=== PATIENT | female | born 1935 | race Caucasian/White ===

== ENCOUNTER 2020-12-14 19:40 | Inpatient (IN) | payer MEDICARE, OTHER ==
[~2020-12-14] VITALS: Ht 157.5 cm; Wt 61.2 kg
[2020-12-14 19:30] VITALS: BP 179/74
[2020-12-14] MEDS ORDERED: LORazepam 1 MG TABLET PO ONE (20:30)
[2020-12-14] MEDS ORDERED: ENOX40DI SQ (23:24)
[2020-12-14] MEDS ORDERED: PANT40TA6 PO (23:24)
[2020-12-14] MEDS ORDERED: FOLI0.8C PO (23:24)
[2020-12-14] MEDS ORDERED: THIA100T22 PO (23:24)
[2020-12-14] MEDS ORDERED: ACET325T21 PO (23:24)
[2020-12-15] MEDS: ACETAMINOPHEN 325 MG TABLET PO PRN ×2 (01:28→15:36)
[2020-12-15] MEDS: LORazepam 0.5 MG TABLET PO PRN ×4 (01:28→19:20)
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
[2020-12-15 05:24] VITALS: BP 181/79
[2020-12-15 06:26] LABS: BASO % 1 % (0-3); EOS # 0.2 x10^3/uL (0.0-0.7); EOS % 4 % (0-3); HEMATOCRIT 38.7 % (36.0-47.0); HEMOGLOBIN 12.8 g/dL (12.0-15.5); LYMPH % 19 % (24-48); MEAN CORPUSCULAR HEMOGLOBIN 30 pg (25-35); MEAN CORPUSCULAR HGB CONC 33 g/dL (31-37); MEAN CORPUSCULAR VOLUME 90 fL (79-100); MONO # 0.7 x10^3/uL (0.0-1.1); MONO % 13 % (0-9); NEUT # 3.4 x10^3uL (1.8-7.7); NEUT % 64 % (31-73); PLATELET COUNT 237 x10^3/uL (140-400); RED CELL DISTRIBUTION WIDTH 13.3 % (11.5-14.5); WHITE BLOOD COUNT 5.3 x10^3/uL (4.0-11.0)
[2020-12-15 06:39] LABS: ALBUMIN 2.7 g/dL (3.4-5.0); ALBUMIN/GLOBULIN RATIO 0.8 (1.0-1.7); CALCIUM 8.7 mg/dL (8.5-10.1); CREATININE 0.8 mg/dL (0.6-1.0); MAGNESIUM 1.7 mg/dL (1.8-2.4); POTASSIUM 3.6 mmol/L (3.5-5.1); TOTAL BILIRUBIN 0.6 mg/dL (0.2-1.0); TOTAL PROTEIN 6.1 g/dL (6.4-8.2)
[2020-12-15] MEDS: ENOXAPARIN 30 MG/0.3 ML SYRINGE. SQ SCH (08:08)
[2020-12-15] MEDS: PANTOPRAZOLE 40 MG TABLET. PO SCH (08:08)
[2020-12-15] MEDS: THIAMINE 100 MG TABLET. PO SCH (08:08)
[2020-12-15] MEDS: FOLIC ACID 1 MG TABLET PO SCH (08:08)
[2020-12-15 09:10] LABS: BACTERIA,URINE FEW /HPF (0-FEW); BILIRUBIN,URINE NEG (NEG); CLARITY,URINE CLEAR; COLOR,URINE YELLOW; GLUCOSE,URINE NEG (NEG); NITRITE,URINE NEG (NEG); SQUAMOUS EPITHELIAL CELL,UR FEW /LPF; UROBILINOGEN,URINE 0.2 mg/dL (0.2 mg/dL)
[2020-12-15 10:41] VITALS: BP 129/74
--- NOTE | 2020-12-15 11:27 | EKG ---
[address] [address] Test Date: 2020-12-15 Test Time: 10:20:06 Pat Name: ADAN LOAIZA Department: Room: 107 A Gender: F Elementary Reading Tutor: : 1935 Requested By: CASSI JARVIS Order Number: [id number] Reading MD: Measurements Intervals [place] Rate: 77 P: 39 LA: 196 QRS: -79 QRSD: 164 T: 109 QT: 432 QTc: 491 Interpretive Statements SINUS RHYTHM ABNORMAL LEFT AXIS DEVIATION NON SPECIFIC INTRAVENTRICULAR BLOCK ABNORMAL ECG RI6.01 No previous ECG available for comparison
[2020-12-15 14:44] VITALS: BP 140/76
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
[2020-12-15 19:46] LABS: THYROID STIM HORMONE (TSH) 3.735 uIU/mL (0.358-3.740)
[2020-12-15 20:42] VITALS: BP 155/73
[2020-12-16 04:07] LABS: HEMOGLOBIN A1C 5.7 % (4.8-5.6)
[2020-12-16] MEDS: LORazepam 0.5 MG TABLET PO PRN (08:06)
[2020-12-16] MEDS: PANTOPRAZOLE 40 MG TABLET. PO SCH (08:06)
[2020-12-16] MEDS: FOLIC ACID 1 MG TABLET PO SCH (08:06)
[2020-12-16] MEDS: ENOXAPARIN 30 MG/0.3 ML SYRINGE. SQ SCH (08:06)
[2020-12-16] MEDS: THIAMINE 100 MG TABLET. PO SCH (08:06)
[2020-12-16] MEDS ORDERED: LORA-254 PO (10:31)
[2020-12-16] MEDS ORDERED: OLAN5TAB9 PO (10:32)
--- NOTE | 2020-12-16 10:36 | NUR ---
COVID (-) THIS AM. DISCHARGE [facility]. NO IV ACCESS TO DC, NOT ON TELE. NO OXYGEN OR EQUIPMENT REQUIREMENTS. PT IS AMBULATORY, BUT TAKEN UP IN WHEELCHAIR. REPORT CALLED TO TELLY CRUZ.
== END 2020-12-16 10:29 | DRG 884 ==
LOC: 1 SOUTH 19:40
PROVIDERS: ADMIT Hospitalist; ATTEND Hospitalist
DX: F03.90 Unspecified dementia, unspecified severity, without behavioral disturbance, psychotic disturbance, mood disturbance, and anxiety (principal); E43 Unspecified severe protein-calorie malnutrition; E28.39 Other primary ovarian failure; E78.5 Hyperlipidemia, unspecified; G25.81 Restless legs syndrome; H40.1190 Primary open-angle glaucoma, unspecified eye, stage unspecified; I10 Essential (primary) hypertension; I48.0 Paroxysmal atrial fibrillation; K21.9 Gastro-esophageal reflux disease without esophagitis; M48.061 Spinal stenosis, lumbar region without neurogenic claudication; M81.0 Age-related osteoporosis without current pathological fracture; Z20.822 Contact with and (suspected) exposure to COVID-19; Z80.1 Family history of malignant neoplasm of trachea, bronchus and lung; Z80.41 Family history of malignant neoplasm of ovary; Z82.49 Family history of ischemic heart disease and other diseases of the circulatory system; Z85.3 Personal history of malignant neoplasm of breast; Z85.828 Personal history of other malignant neoplasm of skin; Z87.891 Personal history of nicotine dependence; Z90.710 Acquired absence of both cervix and uterus; Z95.0 Presence of cardiac pacemaker; Z96.641 Presence of right artificial hip joint; Z98.41 Cataract extraction status, right eye; Z98.42 Cataract extraction status, left eye; Z60.2 Problems related to living alone; I87.2 Venous insufficiency (chronic) (peripheral); Z68.24 Body mass index [BMI] 24.0-24.9, adult
CPT/HCPCS: 36415; 80053; 80061; 81001; 82306; 82607; 83036; 83735; 84443; 85025; 85379; 86592; 87086; 93005; J1650; U0003

== ENCOUNTER 2020-12-16 10:45 | Inpatient (IN) | payer MEDICARE, OTHER ==
[~2020-12-16] VITALS: Ht 157.5 cm; Wt 68.5 kg
[2020-12-16 10:40] VITALS: BP 141/88
[~2020-12-16 10:45] MED LIST: ACET325T21 PO; ENOX40DI SQ; FOLI0.8C PO; LORA-254 PO; OLAN5TAB9 PO; PANT40TA6 PO; THIA100T22 PO
[2020-12-16] MEDS ORDERED: METHYL SALICYLATE/MENTHOL TOPICAL OINTMENT 57GM TUBE. TP PRN (12:45)
[2020-12-16] MEDS ORDERED: MAG HYDROX/AL HYDROX/SIMETH 30 ML ORAL.SUSP PO PRN (12:45)
[2020-12-16] MEDS ORDERED: ACETAMINOPHEN 325 MG TABLET PO PRN ×2 (12:45)
[2020-12-16] MEDS ORDERED: OLANZapine 5 MG TABLET PO PRN (12:45)
[2020-12-16] MEDS ORDERED: MAGNESIUM HYDROXIDE 2,400 MG/30 ML ORAL.SUSP. PO PRN (12:45)
[2020-12-16] MEDS: LORazepam 0.5 MG TABLET PO PRN (13:57)
[2020-12-16 15:27] VITALS: BP 134/94
--- NOTE | 2020-12-16 21:12 | PDOC ---
Exam Note: Jaxon Note: Please also refer to the separate dictated note~for this date of service dictated separately.~Patient seen individually. Discussed the patient with Nursing staff reviewed the chart.~Reviewed interim history and current functioning. Reviewed vital signs,~Labs/ Radiology~and current medications noted below. Continue current treatment with the changes noted in the dictated addendum note Assessment: Vital Signs/I&O: Vital Signs Date Time Temp Pulse Resp B/P (MAP) Pulse Ox O2 Delivery O2 Flow Rate FiO2 12/16/20 15:27 97.8 96 20 134/94 (107) 95 Room Air Current Medications: Meds: Current Medications Medications (Trade) Dose Ordered Sig/Cedrick Route PRN Reason Start Time Stop Time Status Last Admin Dose Admin Lorazepam (Ativan) 0.5 mg PRN Q1HR PRN PO ANXIETY 12/16/20 13:00 12/16/20 13:57 I have reviewed the current psychotropics carefully including drug interactions. Risk benefit ratio favors no change other than as noted in my dictated progress note. ASHELY GRIFFITH MD Dec 16, 2020 21:12
[2020-12-17 06:10] VITALS: BP 133/71
[2020-12-17 07:12] LABS: BASO % 1 % (0-3); EOS # 0.3 x10^3/uL (0.0-0.7); EOS % 7 % (0-3); HEMATOCRIT 36.5 % (36.0-47.0); LYMPH # 1.2 x10^3/uL (1.0-4.8); LYMPH % 27 % (24-48); MEAN CORPUSCULAR HEMOGLOBIN 30 pg (25-35); MEAN CORPUSCULAR HGB CONC 33 g/dL (31-37); MEAN CORPUSCULAR VOLUME 90 fL (79-100); MONO # 0.6 x10^3/uL (0.0-1.1); MONO % 15 % (0-9); NEUT # 2.2 x10^3uL (1.8-7.7); NEUT % 51 % (31-73); PLATELET COUNT 253 x10^3/uL (140-400); RED BLOOD COUNT 4.07 x10^6/uL (3.50-5.40); RED CELL DISTRIBUTION WIDTH 13.4 % (11.5-14.5); WHITE BLOOD COUNT 4.3 x10^3/uL (4.0-11.0)
[2020-12-17 07:33] LABS: ALBUMIN 2.5 g/dL (3.4-5.0); ALBUMIN/GLOBULIN RATIO 0.7 (1.0-1.7); CALCIUM 8.5 mg/dL (8.5-10.1); CREATININE 0.9 mg/dL (0.6-1.0); GFR 59.4; POTASSIUM 4.4 mmol/L (3.5-5.1); TOTAL BILIRUBIN 0.4 mg/dL (0.2-1.0); TOTAL PROTEIN 5.9 g/dL (6.4-8.2)
[2020-12-17] MEDS: THIAMINE 100 MG TABLET. PO SCH (08:12)
[2020-12-17] MEDS: PANTOPRAZOLE 40 MG TABLET. PO SCH ×2 (08:12→08:55)
[2020-12-17] MEDS: FOLIC ACID 1 MG TABLET PO SCH (08:12)
[2020-12-17] MEDS ORDERED: FLU VACC QS 2020-21(6MOS+)/PF 0.5 ML SYRINGE. VAX IM ONE (09:00)
[2020-12-17 13:10] LABS: THYROXINE 6.4 ug/dL (4.5-12.0)
[2020-12-17 15:48] VITALS: BP 166/77
--- NOTE | 2020-12-17 20:59 | PDOC ---
Exam Note: Jaxon Note: Please also refer to the separate dictated note~for this date of service dictated separately.~Patient seen individually. Discussed the patient with Nursing staff reviewed the chart.~Reviewed interim history and current functioning. Reviewed vital signs,~Labs/ Radiology~and current medications noted below. Continue current treatment with the changes noted in the dictated addendum note Assessment: Vital Signs/I&O: Vital Signs Date Time Temp Pulse Resp B/P (MAP) Pulse Ox O2 Delivery O2 Flow Rate FiO2 12/17/20 15:48 98.1 103 20 166/77 (106) 95 Room Air I & O 12/16/20 12/16/20 12/17/20 15:00 23:00 07:00 Intake Total 220 ml 360 ml Balance 220 ml 360 ml Labs: Laboratory Tests Test 12/17/20 07:03 White Blood Count 4.3 x10^3/uL (4.0-11.0) Red Blood Count 4.07 x10^6/uL (3.50-5.40) Hemoglobin 12.0 g/dL (12.0-15.5) Hematocrit 36.5 % (36.0-47.0) Mean Corpuscular Volume 90 fL (79-100) Mean Corpuscular Hemoglobin 30 pg (25-35) Mean Corpuscular Hemoglobin Concent 33 g/dL (31-37) Red Cell Distribution Width 13.4 % (11.5-14.5) Platelet Count 253 x10^3/uL (140-400) Neutrophils (%) (Auto) 51 % (31-73) Lymphocytes (%) (Auto) 27 % (24-48) Monocytes (%) (Auto) 15 % (0-9) H Eosinophils (%) (Auto) 7 % (0-3) H Basophils (%) (Auto) 1 % (0-3) Neutrophils # (Auto) 2.2 x10^3uL (1.8-7.7) Lymphocytes # (Auto) 1.2 x10^3/uL (1.0-4.8) Monocytes # (Auto) 0.6 x10^3/uL (0.0-1.1) Eosinophils # (Auto) 0.3 x10^3/uL (0.0-0.7) Basophils # (Auto) 0.0 x10^3/uL (0.0-0.2) Sodium Level 144 mmol/L (136-145) Potassium Level 4.4 mmol/L (3.5-5.1) Chloride Level 108 mmol/L (98-107) H Carbon Dioxide Level 29 mmol/L (21-32) Anion Gap 7 (6-14) Blood Urea Nitrogen 24 mg/dL (7-20) H Creatinine 0.9 mg/dL (0.6-1.0) Estimated GFR (Cockcroft-Gault) 59.4 BUN/Creatinine Ratio 27 (6-20) H Glucose Level 99 mg/dL (70-99) Calcium Level 8.5 mg/dL (8.5-10.1) Iron Level 35 ug/dL (50-170) L Total Iron Binding Capacity 254 ug/dL (250-450) Iron Saturation 14 % (15-34) L Total Bilirubin 0.4 mg/dL (0.2-1.0) Aspartate Amino Transferase (AST) 35 U/L (15-37) Alanine Aminotransferase (ALT) 24 U/L (14-59) Alkaline Phosphatase 75 U/L (46-116) Total Protein 5.9 g/dL (6.4-8.2) L Albumin 2.5 g/dL (3.4-5.0) L Albumin/Globulin Ratio 0.7 (1.0-1.7) L Thyroxine (T4) 6.4 ug/dL (4.5-12.0) Total Triiodothyronine (TT3) 90 ng/dL (71-180) Current Medications: Meds: Current Medications Medications (Trade) Dose Ordered Sig/Cedrick Route PRN Reason Start Time Stop Time Status Last Admin Dose Admin Pantoprazole Sodium (Protonix) 40 mg DAILYAC PO 12/17/20 07:30 12/17/20 08:55 Thiamine HCl (Vitamin B-1) 100 mg DAILY PO 12/17/20 09:00 12/17/20 08:12 Folic Acid (Folic Acid) 1 mg DAILY PO 12/17/20 09:00 12/17/20 08:12 Influenza Virus Vaccine Quadrival (Fluzone Quad [id number] Syringe) 0.5 ml ONCE ONCE VAX IM 12/17/20 09:00 12/17/20 09:01 DC 12/17/20 08:52 I have reviewed the current psychotropics carefully including drug interactions. Risk benefit ratio favors no change other than as noted in my dictated progress note. ASHELY GRIFFITH MD Dec 17, 2020 20:59
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
[2020-12-18 05:45] VITALS: BP 173/76
[2020-12-18] MEDS: FOLIC ACID 1 MG TABLET PO SCH (08:40)
[2020-12-18] MEDS: THIAMINE 100 MG TABLET. PO SCH (08:40)
[2020-12-18] MEDS: SERTRALINE 25 MG TABLET. PO SCH (08:41)
[2020-12-18] MEDS: PANTOPRAZOLE 40 MG TABLET. PO SCH (08:42)
[2020-12-18] MEDS: RIVASTIGMINE 4.6MG PATCH. TD SCH (08:42)
[2020-12-18] MEDS ORDERED: THIAMINE 100 MG TABLET. PO SCH (09:00)
[2020-12-18 16:28] VITALS: BP 125/86
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
[2020-12-18] MEDS: QUEtiapine 25 MG TABLET. PO SCH (20:11)
--- NOTE | 2020-12-18 22:07 | PDOC ---
Exam Note: Jaxon Note: Please also refer to the separate dictated note~for this date of service dictated separately.~Patient seen individually. Discussed the patient with Nursing staff reviewed the chart.~Reviewed interim history and current functioning. Reviewed vital signs,~Labs/ Radiology~and current medications noted below. Continue current treatment with the changes noted in the dictated addendum note Assessment: Vital Signs/I&O: Vital Signs Date Time Temp Pulse Resp B/P (MAP) Pulse Ox O2 Delivery O2 Flow Rate FiO2 12/18/20 16:28 98.7 80 16 125/86 (99) 95 Room Air I & O 12/17/20 12/17/20 12/18/20 14:59 22:59 06:59 Intake Total 600 ml 360 ml Balance 600 ml 360 ml Current Medications: Meds: Current Medications Medications (Trade) Dose Ordered Sig/Cedrick Route PRN Reason Start Time Stop Time Status Last Admin Dose Admin Sertraline HCl (Zoloft) 25 mg DAILY PO 12/18/20 09:00 12/20/20 09:59 12/18/20 08:41 Rivastigmine (Exelon) 4.6 patch DAILY TD 12/18/20 09:00 12/22/20 09:59 12/18/20 08:42 Quetiapine Fumarate (SEROquel) 25 mg QHS PO 12/18/20 21:00 12/18/20 20:11 I have reviewed the current psychotropics carefully including drug interactions. Risk benefit ratio favors no change other than as noted in my dictated progress note. Diagnosis: Problems: (1) Major neurocognitive disorder (2) Dementia associated with alcoholism with behavioral disturbance (3) Dementia in Alzheimer's disease with depression (4) Dementia in Alzheimer's disease with delusions (5) Dementia, vascular, with delusions (6) Dementia, vascular, with depression (7) Anxiety disorder, unspecified (8) Impulse control disorder, unspecified ASHELY GRIFFITH MD Dec 18, 2020 22:07
[2020-12-18 22:18] LABS: BACTERIA,URINE FEW /HPF (0-FEW); BILIRUBIN,URINE NEG (NEG); CLARITY,URINE CLEAR; COLOR,URINE YELLOW; GLUCOSE,URINE NEG (NEG); NITRITE,URINE NEG (NEG); RBC,URINE 0 /HPF (0-2); SQUAMOUS EPITHELIAL CELL,UR FEW /LPF; UROBILINOGEN,URINE 0.2 mg/dL (0.2 mg/dL)
[2020-12-19 05:29] VITALS: BP 164/61
[2020-12-19] MEDS: THIAMINE 100 MG TABLET. PO SCH (08:53)
[2020-12-19] MEDS: SERTRALINE 25 MG TABLET. PO SCH (08:53)
[2020-12-19] MEDS: FOLIC ACID 1 MG TABLET PO SCH (08:53)
[2020-12-19] MEDS: RIVASTIGMINE 4.6MG PATCH. TD SCH (08:53)
[2020-12-19 16:01] VITALS: BP 125/71
[2020-12-19] MEDS: LORazepam 0.5 MG TABLET PO PRN (16:20)
[2020-12-19] MEDS: QUEtiapine 25 MG TABLET. PO SCH (20:00)
[2020-12-20 06:03] VITALS: BP 175/80
[2020-12-20] MEDS: THIAMINE 100 MG TABLET. PO SCH (07:39)
[2020-12-20] MEDS: SERTRALINE 25 MG TABLET. PO SCH (07:39)
[2020-12-20] MEDS: PANTOPRAZOLE 40 MG TABLET. PO SCH (07:39)
[2020-12-20] MEDS: FOLIC ACID 1 MG TABLET PO SCH (07:39)
[2020-12-20] MEDS: RIVASTIGMINE 4.6MG PATCH. TD SCH (07:40)
[2020-12-20] MEDS: LORazepam 0.5 MG TABLET PO PRN ×2 (07:40→16:19)
[2020-12-20] MEDS: QUEtiapine 25 MG TABLET. PO SCH ×2 (07:40→19:26)
[2020-12-20 16:05] VITALS: BP 135/74
--- NOTE | 2020-12-20 21:10 | PDOC ---
Exam Note: Jaxon Note: This note is a late entry for 12/18/2020 covers elements not covered in my initial note. Subjective: The patient was seen face to face in the evening of 12/18/2020 with Evelyne CRUZ, discussed and reviewed the chart. The patient slept just 6-1/4 hours previous night. Previous night she was at the nursing station for 2 hours, wanting to leave, paranoid, believes people were stealing her car including her power of attorney at law. She did receive Zyprexa Zydis. She is paranoid, suspicious. Review of Systems: No CV, , pulmonary, eye, ENT system symptoms on review. Mental Status Exam: The patient is oriented to himself and situation. Insight, judgment, recent memory is impaired. Remote is better. Language function intact. Attention span is short. Mood and affect remains labile. She is quite animated. No suicidal or homicidal ideation. Laboratory Data: Reviewed. Impression: Major neurocognitive disorder Alzheimer vascular with delusion, depression, behavioral disturbance. Anxiety disorder unspecified. Impulse control disorder unspecified. Plan: Continue current psychotropics. Start Seroquel 25 mg p.o. h.s. We will make further adjustments as clinically indicated. Assessment: Vital Signs/I&O: Vital Signs Date Time Temp Pulse Resp B/P (MAP) Pulse Ox O2 Delivery O2 Flow Rate FiO2 12/20/20 16:05 98.9 80 16 135/74 (94) 96 12/19/20 16:01 Room Air I & O 12/19/20 12/19/20 12/20/20 15:00 23:00 07:00 Intake Total 480 ml 1500 ml Balance 480 ml 1500 ml Current Medications: Meds: Current Medications Medications (Trade) Dose Ordered Sig/Cedrick Route PRN Reason Start Time Stop Time Status Last Admin Dose Admin Acetaminophen (Tylenol) 650 mg PRN Q6HRS PRN PO MILD PAIN / TEMP > 100.3'F 12/16/20 12:45 UNV Multi-Ingredient Ointment (Analgesic [place]) 1 judy PRN QID PRN TP MUSCLE PAIN 12/16/20 12:45 Al Hydroxide/Mg Hydroxide (Mylanta Plus Xs) 15 ml PRN AFTMEALHC PRN PO DYSPEPSIA 12/16/20 12:45 Magnesium Hydroxide (Milk Of Magnesia) 2,400 mg PRN QHS PRN PO CONSTIPATION 12/16/20 12:45 Acetaminophen (Tylenol) 650 mg PRN Q4HRS PRN PO mild PAIN 12/16/20 12:45 Lorazepam (Ativan) 0.5 mg PRN Q1HR PRN PO ANXIETY 12/16/20 13:00 12/20/20 16:19 Olanzapine (ZyPREXA) 5 mg 1X PRN PRN PO ANXIETY / AGITATION 12/16/20 12:45 12/16/20 21:55 Pantoprazole Sodium (Protonix) 40 mg DAILYAC PO 12/17/20 07:30 12/20/20 07:39 Thiamine HCl (Vitamin B-1) 100 mg DAILY PO 12/17/20 09:00 12/20/20 07:39 Folic Acid (Folic Acid) 1 mg DAILY PO 12/17/20 09:00 12/20/20 07:39 Influenza Virus Vaccine Quadrival (Fluzone Quad Syringe) 0.5 ml ONCE ONCE VAX IM 12/17/20 09:00 12/17/20 09:01 DC 12/17/20 08:52 Olanzapine (ZyPREXA ZYDIS) 2.5 mg PRN Q2HR PRN PO PSYCHOSIS 12/16/20 18:45 12/20/20 16:19 Sertraline HCl (Zoloft) 50 mg DAILY PO 12/21/20 09:00 Sertraline HCl (Zoloft) 25 mg DAILY PO 12/18/20 09:00 12/20/20 09:59 DC 12/20/20 07:39 Rivastigmine (Exelon) 4.6 patch DAILY TD 12/18/20 09:00 12/22/20 09:59 12/20/20 07:40 Rivastigmine (Exelon) 1 patch DAILY TD 12/23/20 09:00 Thiamine HCl (Vitamin B-1) 100 mg DAILY PO 12/18/20 09:00 12/18/20 13:09 DC Quetiapine Fumarate (SEROquel) 25 mg QHS PO 12/18/20 21:00 12/20/20 19:26 Quetiapine Fumarate (SEROquel) 12.5 mg DAILY PO 12/20/20 09:00 12/20/20 07:40 Current Medications Medications (Trade) Dose Ordered Sig/Cedrick Route PRN Reason Start Time Stop Time Status Last Admin Dose Admin Quetiapine Fumarate (SEROquel) 12.5 mg DAILY PO 12/20/20 09:00 12/20/20 07:40 I have reviewed the current psychotropics carefully including drug interactions. Risk benefit ratio favors no change other than as noted in my dictated progress note. Diagnosis: Problems: (1) Impulse control disorder, unspecified (2) Anxiety disorder, unspecified (3) Dementia, vascular, with depression (4) Dementia, vascular, with delusions (5) Dementia in Alzheimer's disease with depression (6) Dementia in Alzheimer's disease with delusions (7) Major neurocognitive disorder (8) Dementia associated with alcoholism with behavioral disturbance ASHELY GRIFFITH MD Dec 20, 2020 21:09
--- NOTE | 2020-12-20 21:34 | PDOC ---
Exam Note: Jaxon Note: This note is a late entry for 12/19/2020 covers elements not covered in my initial note. Subjective: The patient was seen face to face in the evening of 12/19/2020 with Evelyne CRUZ, discussed and reviewed the chart. The patient slept just 6-1/2 hours previous night. She seems to laugh inappropriately, somewhat giddy, grandiose at times. Nursing staff wondered about pseudobulbar affect. She did well till about 16.20 this afternoon, then was more gregarious, obsessive. Review of Systems: No CV, , pulmonary, eye, ENT system symptoms on review. Mental Status Exam: The patient is oriented to himself and situation. She is hyperverbal, anxious, distractible. She is somewhat obsessive, repetitive. Insight, judgment, recent memory is impaired. Remote is better. Language function intact. Attention span is short. Mood and affect remains labile. She is quite animated. No suicidal or homicidal ideation. Laboratory Data: Reviewed. Impression: Major neurocognitive disorder Alzheimer vascular with delusion, depression, behavioral disturbance. Anxiety disorder unspecified. Impulse control disorder unspecified. Plan: Repeat UA is unremarkable. We will add Seroquel 12.5 mg 9 a.m. Continue rest unchanged. Assessment: Vital Signs/I&O: Vital Signs Date Time Temp Pulse Resp B/P (MAP) Pulse Ox O2 Delivery O2 Flow Rate FiO2 12/20/20 16:05 98.9 80 16 135/74 (94) 96 12/19/20 16:01 Room Air I & O 12/19/20 12/19/20 12/20/20 15:00 23:00 07:00 Intake Total 480 ml 1500 ml Balance 480 ml 1500 ml Current Medications: Meds: Current Medications Medications (Trade) Dose Ordered Sig/Cedrick Route PRN Reason Start Time Stop Time Status Last Admin Dose Admin Acetaminophen (Tylenol) 650 mg PRN Q6HRS PRN PO MILD PAIN / TEMP > 100.3'F 12/16/20 12:45 UNV Multi-Ingredient Ointment (Analgesic [place]) 1 judy PRN QID PRN TP MUSCLE PAIN 12/16/20 12:45 Al Hydroxide/Mg Hydroxide (Mylanta Plus Xs) 15 ml PRN AFTMEALHC PRN PO DYSPEPSIA 12/16/20 12:45 Magnesium Hydroxide (Milk Of Magnesia) 2,400 mg PRN QHS PRN PO CONSTIPATION 12/16/20 12:45 Acetaminophen (Tylenol) 650 mg PRN Q4HRS PRN PO mild PAIN 12/16/20 12:45 Lorazepam (Ativan) 0.5 mg PRN Q1HR PRN PO ANXIETY 12/16/20 13:00 12/20/20 16:19 Olanzapine (ZyPREXA) 5 mg 1X PRN PRN PO ANXIETY / AGITATION 12/16/20 12:45 12/16/20 21:55 Pantoprazole Sodium (Protonix) 40 mg DAILYAC PO 12/17/20 07:30 12/20/20 07:39 Thiamine HCl (Vitamin B-1) 100 mg DAILY PO 12/17/20 09:00 12/20/20 07:39 Folic Acid (Folic Acid) 1 mg DAILY PO 12/17/20 09:00 12/20/20 07:39 Influenza Virus Vaccine Quadrival (Fluzone Quad Syringe) 0.5 ml ONCE ONCE VAX IM 12/17/20 09:00 12/17/20 09:01 DC 12/17/20 08:52 Olanzapine (ZyPREXA ZYDIS) 2.5 mg PRN Q2HR PRN PO PSYCHOSIS 12/16/20 18:45 12/20/20 16:19 Sertraline HCl (Zoloft) 50 mg DAILY PO 12/21/20 09:00 Sertraline HCl (Zoloft) 25 mg DAILY PO 12/18/20 09:00 12/20/20 09:59 DC 12/20/20 07:39 Rivastigmine (Exelon) 4.6 patch DAILY TD 12/18/20 09:00 12/22/20 09:59 12/20/20 07:40 Rivastigmine (Exelon) 1 patch DAILY TD 12/23/20 09:00 Thiamine HCl (Vitamin B-1) 100 mg DAILY PO 12/18/20 09:00 12/18/20 13:09 DC Quetiapine Fumarate (SEROquel) 25 mg QHS PO 12/18/20 21:00 12/20/20 19:26 Quetiapine Fumarate (SEROquel) 12.5 mg DAILY PO 12/20/20 09:00 12/20/20 07:40 Current Medications Medications (Trade) Dose Ordered Sig/Cedrick Route PRN Reason Start Time Stop Time Status Last Admin Dose Admin Quetiapine Fumarate (SEROquel) 12.5 mg DAILY PO 12/20/20 09:00 12/20/20 07:40 I have reviewed the current psychotropics carefully including drug interactions. Risk benefit ratio favors no change other than as noted in my dictated progress note. Diagnosis: Problems: (1) Impulse control disorder, unspecified (2) Anxiety disorder, unspecified (3) Dementia, vascular, with depression (4) Dementia, vascular, with delusions (5) Dementia in Alzheimer's disease with depression (6) Dementia in Alzheimer's disease with delusions (7) Major neurocognitive disorder (8) Dementia associated with alcoholism with behavioral disturbance ASHELY GRIFFITH MD Dec 20, 2020 21:34
--- NOTE | 2020-12-20 21:57 | PDOC ---
Exam Note: Jaxon Note: Please also refer to the separate dictated note~for this date of service dictated separately.~Patient seen individually. Discussed the patient with Nursing staff reviewed the chart.~Reviewed interim history and current functioning. Reviewed vital signs,~Labs/ Radiology~and current medications noted below. Continue current treatment with the changes noted in the dictated addendum note Assessment: Vital Signs/I&O: Vital Signs Date Time Temp Pulse Resp B/P (MAP) Pulse Ox O2 Delivery O2 Flow Rate FiO2 12/20/20 16:05 98.9 80 16 135/74 (94) 96 12/19/20 16:01 Room Air I & O 12/19/20 12/19/20 12/20/20 15:00 23:00 07:00 Intake Total 480 ml 1500 ml Balance 480 ml 1500 ml Current Medications: Meds: Current Medications Medications (Trade) Dose Ordered Sig/Cedrick Route PRN Reason Start Time Stop Time Status Last Admin Dose Admin Quetiapine Fumarate (SEROquel) 12.5 mg DAILY PO 12/20/20 09:00 12/20/20 07:40 I have reviewed the current psychotropics carefully including drug interactions. Risk benefit ratio favors no change other than as noted in my dictated progress note. Diagnosis: Problems: (1) Impulse control disorder, unspecified (2) Anxiety disorder, unspecified (3) Dementia, vascular, with depression (4) Dementia, vascular, with delusions (5) Dementia in Alzheimer's disease with depression (6) Dementia in Alzheimer's disease with delusions (7) Major neurocognitive disorder (8) Dementia associated with alcoholism with behavioral disturbance ASHELY GRIFFITH MD Dec 20, 2020 21:57
[2020-12-21 06:05] VITALS: BP 152/70
[2020-12-21] MEDS: QUEtiapine 25 MG TABLET. PO SCH ×2 (08:15→19:55)
[2020-12-21] MEDS: PANTOPRAZOLE 40 MG TABLET. PO SCH (08:16)
[2020-12-21] MEDS: FOLIC ACID 1 MG TABLET PO SCH (08:16)
[2020-12-21] MEDS: RIVASTIGMINE 4.6MG PATCH. TD SCH (08:16)
[2020-12-21] MEDS: THIAMINE 100 MG TABLET. PO SCH (08:19)
[2020-12-21] MEDS: SERTRALINE 50 MG TABLET. PO SCH (08:37)
[2020-12-21 16:04] VITALS: BP 100/70
--- NOTE | 2020-12-21 21:04 | PDOC ---
Exam Note: Jaxon Note: Please also refer to the separate dictated note~for this date of service dictated separately.~Patient seen individually. Discussed the patient with Nursing staff reviewed the chart.~Reviewed interim history and current functioning. Reviewed vital signs,~Labs/ Radiology~and current medications noted below. Continue current treatment with the changes noted in the dictated addendum note Assessment: Vital Signs/I&O: Vital Signs Date Time Temp Pulse Resp B/P (MAP) Pulse Ox O2 Delivery O2 Flow Rate FiO2 12/21/20 16:04 98.6 76 18 100/70 (80) 96 12/19/20 16:01 Room Air I & O 12/20/20 12/20/20 12/21/20 15:00 23:00 07:00 Intake Total 840 ml 420 ml Balance 840 ml 420 ml Current Medications: Meds: Current Medications Medications (Trade) Dose Ordered Sig/Cedrick Route PRN Reason Start Time Stop Time Status Last Admin Dose Admin Sertraline HCl (Zoloft) 50 mg DAILY PO 12/21/20 09:00 12/21/20 08:37 I have reviewed the current psychotropics carefully including drug interactions. Risk benefit ratio favors no change other than as noted in my dictated progress note. Diagnosis: Problems: (1) Impulse control disorder, unspecified (2) Anxiety disorder, unspecified (3) Dementia, vascular, with depression (4) Dementia, vascular, with delusions (5) Dementia in Alzheimer's disease with depression (6) Dementia in Alzheimer's disease with delusions (7) Major neurocognitive disorder (8) Dementia associated with alcoholism with behavioral disturbance ASHELY GRIFFITH MD Dec 21, 2020 21:04
[2020-12-22 06:10] VITALS: BP 182/69
[2020-12-22] MEDS: SERTRALINE 50 MG TABLET. PO SCH (08:38)
[2020-12-22] MEDS: QUEtiapine 25 MG TABLET. PO SCH ×2 (08:38→19:36)
[2020-12-22] MEDS: THIAMINE 100 MG TABLET. PO SCH (08:38)
[2020-12-22] MEDS: FOLIC ACID 1 MG TABLET PO SCH (08:38)
[2020-12-22] MEDS: PANTOPRAZOLE 40 MG TABLET. PO SCH (08:38)
[2020-12-22] MEDS ORDERED: RIVASTIGMINE 4.6MG PATCH. TD SCH (09:00)
--- NOTE | 2020-12-22 10:02 | PDOC ---
Exam Note: Jaxon Note: This note is a late entry for 12/20/2020 covers elements not covered in my initial note. Subjective: The patient was seen face to face in the evening of 12/20/2020 with Evelyne CRUZ, discussed and reviewed the chart. The patient slept just 9 hours previous night. She remains anxious, restless, labile, obsessed about discharge. Received Zyprexa and Ativan p.r.n., Seroquel in the evening gets better for a while. Review of Systems: No CV, , pulmonary, eye, ENT system symptoms on review. Mental Status Exam: The patient is oriented to herself and situation. She was obsessed and repetitively asking me about discharge plans. I addressed with her. Insight, judgment, recent memory is impaired. Remote is better. Language function intact. Attention span is short. Mood and affect remains labile. No suicidal or homicidal ideation. Laboratory Data: Reviewed. Impression: Major neurocognitive disorder Alzheimer vascular with delusion, depression, behavioral disturbance. Anxiety disorder unspecified. Impulse control disorder unspecified. Plan: Continue psychotropics unchanged. Assessment: Vital Signs/I&O: Vital Signs Date Time Temp Pulse Resp B/P (MAP) Pulse Ox O2 Delivery O2 Flow Rate FiO2 12/22/20 06:10 97.6 71 18 182/69 (106) 95 12/19/20 16:01 Room Air I & O 12/21/20 12/21/20 12/22/20 15:00 23:00 07:00 Intake Total 840 ml 260 ml Balance 840 ml 260 ml Current Medications: Meds: Current Medications Medications (Trade) Dose Ordered Sig/Cedrick Route PRN Reason Start Time Stop Time Status Last Admin Dose Admin Acetaminophen (Tylenol) 650 mg PRN Q6HRS PRN PO MILD PAIN / TEMP > 100.3'F 12/16/20 12:45 UNV Multi-Ingredient Ointment (Analgesic [place]) 1 judy PRN QID PRN TP MUSCLE PAIN 12/16/20 12:45 Al Hydroxide/Mg Hydroxide (Mylanta Plus Xs) 15 ml PRN AFTMEALHC PRN PO DYSPEPSIA 12/16/20 12:45 Magnesium Hydroxide (Milk Of Magnesia) 2,400 mg PRN QHS PRN PO CONSTIPATION 12/16/20 12:45 Acetaminophen (Tylenol) 650 mg PRN Q4HRS PRN PO mild PAIN 12/16/20 12:45 12/21/20 15:02 Lorazepam (Ativan) 0.5 mg PRN Q1HR PRN PO ANXIETY 12/16/20 13:00 12/20/20 16:19 Olanzapine (ZyPREXA) 5 mg 1X PRN PRN PO ANXIETY / AGITATION 12/16/20 12:45 12/21/20 07:52 DC 12/16/20 21:55 Pantoprazole Sodium (Protonix) 40 mg DAILYAC PO 12/17/20 07:30 12/22/20 08:38 Thiamine HCl (Vitamin B-1) 100 mg DAILY PO 12/17/20 09:00 12/22/20 08:38 Folic Acid (Folic Acid) 1 mg DAILY PO 12/17/20 09:00 12/22/20 08:38 Influenza Virus Vaccine Quadrival (Fluzone Quad [id number] Syringe) 0.5 ml ONCE ONCE VAX IM 12/17/20 09:00 12/17/20 09:01 DC 12/17/20 08:52 Olanzapine (ZyPREXA ZYDIS) 2.5 mg PRN Q2HR PRN PO PSYCHOSIS 12/16/20 18:45 12/21/20 13:08 Sertraline HCl (Zoloft) 50 mg DAILY PO 12/21/20 09:00 12/22/20 08:38 Sertraline HCl (Zoloft) 25 mg DAILY PO 12/18/20 09:00 12/20/20 09:59 DC 12/20/20 07:39 Rivastigmine (Exelon) 4.6 patch DAILY TD 12/18/20 09:00 12/22/20 08:43 DC 12/21/20 08:16 Rivastigmine (Exelon) 1 patch DAILY TD 12/23/20 09:00 Thiamine HCl (Vitamin B-1) 100 mg DAILY PO 12/18/20 09:00 12/18/20 13:09 DC Quetiapine Fumarate (SEROquel) 25 mg QHS PO 12/18/20 21:00 12/21/20 19:55 Quetiapine Fumarate (SEROquel) 12.5 mg DAILY PO 12/20/20 09:00 12/22/20 08:38 Rivastigmine (Exelon) 1 patch DAILY TD 12/22/20 09:00 12/22/20 09:01 DC I have reviewed the current psychotropics carefully including drug interactions. Risk benefit ratio favors no change other than as noted in my dictated progress note. Diagnosis: Problems: (1) Impulse control disorder, unspecified (2) Anxiety disorder, unspecified (3) Dementia, vascular, with depression (4) Dementia, vascular, with delusions (5) Dementia in Alzheimer's disease with depression (6) Dementia in Alzheimer's disease with delusions (7) Major neurocognitive disorder (8) Dementia associated with alcoholism with behavioral disturbance ASHELY GRIFFITH MD Dec 22, 2020 10:02
--- NOTE | 2020-12-22 10:28 | PDOC ---
Exam Note: Jaxon Note: This note is a late entry for 12/21/2020 covers elements not covered in my initial note. Subjective: The patient was seen face to face in the evening of 12/21/2020 with Raine CRUZ, discussed and reviewed the chart. The patient slept just 7-3/4 hours previous night. She remains confused, labile, anxious, obsessed regarding discharge. She often refuses her medications, but if she is told they are vitamins, she takes it. Review of Systems: No CV, , pulmonary, eye, ENT system symptoms on review. Mental Status Exam: The patient is oriented to herself and situation. Speech coherent. Abstraction fair. Language function intact. Attention span is short. Mood and affect remains labile, anxious. No suicidal or homicidal ideation. Laboratory Data: Reviewed. Impression: Major neurocognitive disorder Alzheimer vascular with delusion, depression, behavioral disturbance. Anxiety disorder unspecified. Impulse control disorder unspecified. Plan: Continue psychotropics unchanged. Assessment: Vital Signs/I&O: Vital Signs Date Time Temp Pulse Resp B/P (MAP) Pulse Ox O2 Delivery O2 Flow Rate FiO2 12/22/20 06:10 97.6 71 18 182/69 (106) 95 12/19/20 16:01 Room Air I & O 12/21/20 12/21/20 12/22/20 15:00 23:00 07:00 Intake Total 840 ml 260 ml Balance 840 ml 260 ml Current Medications: Meds: Current Medications Medications (Trade) Dose Ordered Sig/Cedrick Route PRN Reason Start Time Stop Time Status Last Admin Dose Admin Acetaminophen (Tylenol) 650 mg PRN Q6HRS PRN PO MILD PAIN / TEMP > 100.3'F 12/16/20 12:45 UNV Multi-Ingredient Ointment (Analgesic [place]) 1 judy PRN QID PRN TP MUSCLE PAIN 12/16/20 12:45 Al Hydroxide/Mg Hydroxide (Mylanta Plus Xs) 15 ml PRN AFTMEALHC PRN PO DYSPEPSIA 12/16/20 12:45 Magnesium Hydroxide (Milk Of Magnesia) 2,400 mg PRN QHS PRN PO CONSTIPATION 12/16/20 12:45 Acetaminophen (Tylenol) 650 mg PRN Q4HRS PRN PO mild PAIN 12/16/20 12:45 12/21/20 15:02 Lorazepam (Ativan) 0.5 mg PRN Q1HR PRN PO ANXIETY 12/16/20 13:00 12/20/20 16:19 Olanzapine (ZyPREXA) 5 mg 1X PRN PRN PO ANXIETY / AGITATION 12/16/20 12:45 12/21/20 07:52 DC 12/16/20 21:55 Pantoprazole Sodium (Protonix) 40 mg DAILYAC PO 12/17/20 07:30 12/22/20 08:38 Thiamine HCl (Vitamin B-1) 100 mg DAILY PO 12/17/20 09:00 12/22/20 08:38 Folic Acid (Folic Acid) 1 mg DAILY PO 12/17/20 09:00 12/22/20 08:38 Influenza Virus Vaccine Quadrival (Fluzone Quad Syringe) 0.5 ml ONCE ONCE VAX IM 12/17/20 09:00 12/17/20 09:01 DC 12/17/20 08:52 Olanzapine (ZyPREXA ZYDIS) 2.5 mg PRN Q2HR PRN PO PSYCHOSIS 12/16/20 18:45 12/21/20 13:08 Sertraline HCl (Zoloft) 50 mg DAILY PO 12/21/20 09:00 12/22/20 08:38 Sertraline HCl (Zoloft) 25 mg DAILY PO 12/18/20 09:00 12/20/20 09:59 DC 12/20/20 07:39 Rivastigmine (Exelon) 4.6 patch DAILY TD 12/18/20 09:00 12/22/20 08:43 DC 12/21/20 08:16 Rivastigmine (Exelon) 1 patch DAILY TD 12/23/20 09:00 Thiamine HCl (Vitamin B-1) 100 mg DAILY PO 12/18/20 09:00 12/18/20 13:09 DC Quetiapine Fumarate (SEROquel) 25 mg QHS PO 12/18/20 21:00 12/21/20 19:55 Quetiapine Fumarate (SEROquel) 12.5 mg DAILY PO 12/20/20 09:00 12/22/20 08:38 Rivastigmine (Exelon) 1 patch DAILY TD 12/22/20 09:00 12/22/20 09:01 DC I have reviewed the current psychotropics carefully including drug interactions. Risk benefit ratio favors no change other than as noted in my dictated progress note. Diagnosis: Problems: (1) Impulse control disorder, unspecified (2) Anxiety disorder, unspecified (3) Dementia, vascular, with depression (4) Dementia, vascular, with delusions (5) Dementia in Alzheimer's disease with depression (6) Dementia in Alzheimer's disease with delusions (7) Major neurocognitive disorder (8) Dementia associated with alcoholism with behavioral disturbance ASHELY GRIFFITH MD Dec 22, 2020 10:28
[2020-12-22 15:35] VITALS: BP 143/76
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
--- NOTE | 2020-12-22 21:07 | PDOC ---
Exam Note: Jaxon Note: Please also refer to the separate dictated note~for this date of service dictated separately.~Patient seen individually. Discussed the patient with Nursing staff reviewed the chart.~Reviewed interim history and current functioning. Reviewed vital signs,~Labs/ Radiology~and current medications noted below. Continue current treatment with the changes noted in the dictated addendum note Assessment: Vital Signs/I&O: Vital Signs Date Time Temp Pulse Resp B/P (MAP) Pulse Ox O2 Delivery O2 Flow Rate FiO2 12/22/20 15:35 98.2 89 16 143/76 (98) 92 12/19/20 16:01 Room Air I & O 12/21/20 12/21/20 12/22/20 14:59 22:59 06:59 Intake Total 840 ml 260 ml Balance 840 ml 260 ml Current Medications: Meds: Current Medications Medications (Trade) Dose Ordered Sig/Cedrick Route PRN Reason Start Time Stop Time Status Last Admin Dose Admin Acetaminophen (Tylenol) 650 mg PRN Q6HRS PRN PO MILD PAIN / TEMP > 100.3'F 12/16/20 12:45 UNV Multi-Ingredient Ointment (Analgesic [place]) 1 judy PRN QID PRN TP MUSCLE PAIN 12/16/20 12:45 Al Hydroxide/Mg Hydroxide (Mylanta Plus Xs) 15 ml PRN AFTMEALHC PRN PO DYSPEPSIA 12/16/20 12:45 Magnesium Hydroxide (Milk Of Magnesia) 2,400 mg PRN QHS PRN PO CONSTIPATION 12/16/20 12:45 Acetaminophen (Tylenol) 650 mg PRN Q4HRS PRN PO mild PAIN 12/16/20 12:45 12/21/20 15:02 Lorazepam (Ativan) 0.5 mg PRN Q1HR PRN PO ANXIETY 12/16/20 13:00 12/20/20 16:19 Olanzapine (ZyPREXA) 5 mg 1X PRN PRN PO ANXIETY / AGITATION 12/16/20 12:45 12/21/20 07:52 DC 12/16/20 21:55 Pantoprazole Sodium (Protonix) 40 mg DAILYAC PO 12/17/20 07:30 12/22/20 08:38 Thiamine HCl (Vitamin B-1) 100 mg DAILY PO 12/17/20 09:00 12/22/20 08:38 Folic Acid (Folic Acid) 1 mg DAILY PO 12/17/20 09:00 12/22/20 08:38 Influenza Virus Vaccine Quadrival (Fluzone Quad Syringe) 0.5 ml ONCE ONCE VAX IM 12/17/20 09:00 12/17/20 09:01 DC 12/17/20 08:52 Olanzapine (ZyPREXA ZYDIS) 2.5 mg PRN Q2HR PRN PO PSYCHOSIS 12/16/20 18:45 12/22/20 15:08 Sertraline HCl (Zoloft) 50 mg DAILY PO 12/21/20 09:00 12/22/20 08:38 Sertraline HCl (Zoloft) 25 mg DAILY PO 12/18/20 09:00 12/20/20 09:59 DC 12/20/20 07:39 Rivastigmine (Exelon) 4.6 patch DAILY TD 12/18/20 09:00 12/22/20 08:43 DC 12/21/20 08:16 Rivastigmine (Exelon) 1 patch DAILY TD 12/23/20 09:00 Thiamine HCl (Vitamin B-1) 100 mg DAILY PO 12/18/20 09:00 12/18/20 13:09 DC Quetiapine Fumarate (SEROquel) 25 mg QHS PO 12/18/20 21:00 12/22/20 19:36 Quetiapine Fumarate (SEROquel) 12.5 mg DAILY PO 12/20/20 09:00 12/22/20 08:38 Rivastigmine (Exelon) 1 patch DAILY TD 12/22/20 09:00 12/22/20 09:01 DC I have reviewed the current psychotropics carefully including drug interactions. Risk benefit ratio favors no change other than as noted in my dictated progress note. Diagnosis: Problems: (1) Impulse control disorder, unspecified (2) Anxiety disorder, unspecified (3) Dementia, vascular, with depression (4) Dementia, vascular, with delusions (5) Dementia in Alzheimer's disease with depression (6) Dementia in Alzheimer's disease with delusions (7) Major neurocognitive disorder (8) Dementia associated with alcoholism with behavioral disturbance ASHELY GRIFFITH MD Dec 22, 2020 21:07
[2020-12-23 05:55] VITALS: BP 148/70
[2020-12-23] MEDS: QUEtiapine 25 MG TABLET. PO SCH ×3 (07:17→19:38)
[2020-12-23] MEDS: FOLIC ACID 1 MG TABLET PO SCH (07:17)
[2020-12-23] MEDS: THIAMINE 100 MG TABLET. PO SCH (07:17)
[2020-12-23] MEDS: PANTOPRAZOLE 40 MG TABLET. PO SCH (07:17)
[2020-12-23] MEDS: SERTRALINE 50 MG TABLET. PO SCH (07:18)
--- NOTE | 2020-12-23 07:40 | PDOC ---
Exam Note: Jaxon Note: This note is a late entry for 12/22/2020 covers elements not covered in my initial note. Subjective: The patient was seen face to face in the evening of 12/22/2020 with Raine CRUZ, discussed and reviewed the chart. The patient slept 8 hours previous night. She has been obsessed about discharge, talking about her childhood in [place], having grown up with many pets. She was somewhat agitated in the evening regarding discharge plans and I addressed with her. Review of Systems: No CV, , pulmonary, eye, ENT system symptoms on review. Mental Status Exam: The patient is oriented to herself and situation. Speech coherent. Abstraction fair. Language function intact. Attention span is short. Mood and affect remains anxious. No suicidal or homicidal ideation. Laboratory Data: Reviewed. Impression: Major neurocognitive disorder Alzheimer vascular with delusion, depression, behavioral disturbance. Anxiety disorder unspecified. Impulse control disorder unspecified. Plan: We may need to increase Seroquel if delusions or agitation persists. Assessment: Vital Signs/I&O: Vital Signs Date Time Temp Pulse Resp B/P (MAP) Pulse Ox O2 Delivery O2 Flow Rate FiO2 12/23/20 05:55 97.5 65 18 148/70 (96) 96 12/19/20 16:01 Room Air I & O 12/22/20 12/22/20 12/23/20 15:00 23:00 07:00 Intake Total 720 ml 600 ml Balance 720 ml 600 ml Current Medications: Meds: Current Medications Medications (Trade) Dose Ordered Sig/Cedrick Route PRN Reason Start Time Stop Time Status Last Admin Dose Admin Acetaminophen (Tylenol) 650 mg PRN Q6HRS PRN PO MILD PAIN / TEMP > 100.3'F 12/16/20 12:45 UNV Multi-Ingredient Ointment (Analgesic [place]) 1 judy PRN QID PRN TP MUSCLE PAIN 12/16/20 12:45 Al Hydroxide/Mg Hydroxide (Mylanta Plus Xs) 15 ml PRN AFTMEALHC PRN PO DYSPEPSIA 12/16/20 12:45 Magnesium Hydroxide (Milk Of Magnesia) 2,400 mg PRN QHS PRN PO CONSTIPATION 12/16/20 12:45 Acetaminophen (Tylenol) 650 mg PRN Q4HRS PRN PO mild PAIN 12/16/20 12:45 12/21/20 15:02 Lorazepam (Ativan) 0.5 mg PRN Q1HR PRN PO ANXIETY 12/16/20 13:00 12/20/20 16:19 Olanzapine (ZyPREXA) 5 mg 1X PRN PRN PO ANXIETY / AGITATION 12/16/20 12:45 12/21/20 07:52 DC 12/16/20 21:55 Pantoprazole Sodium (Protonix) 40 mg DAILYAC PO 12/17/20 07:30 12/23/20 07:17 Thiamine HCl (Vitamin B-1) 100 mg DAILY PO 12/17/20 09:00 12/23/20 07:17 Folic Acid (Folic Acid) 1 mg DAILY PO 12/17/20 09:00 12/23/20 07:17 Influenza Virus Vaccine Quadrival (Fluzone Quad Syringe) 0.5 ml ONCE ONCE VAX IM 12/17/20 09:00 12/17/20 09:01 DC 12/17/20 08:52 Olanzapine (ZyPREXA ZYDIS) 2.5 mg PRN Q2HR PRN PO PSYCHOSIS 12/16/20 18:45 12/23/20 07:17 Sertraline HCl (Zoloft) 50 mg DAILY PO 12/21/20 09:00 12/23/20 07:18 Sertraline HCl (Zoloft) 25 mg DAILY PO 12/18/20 09:00 12/20/20 09:59 DC 12/20/20 07:39 Rivastigmine (Exelon) 4.6 patch DAILY TD 12/18/20 09:00 12/22/20 08:43 DC 12/21/20 08:16 Rivastigmine (Exelon) 1 patch DAILY TD 12/23/20 09:00 Thiamine HCl (Vitamin B-1) 100 mg DAILY PO 12/18/20 09:00 12/18/20 13:09 DC Quetiapine Fumarate (SEROquel) 25 mg QHS PO 12/18/20 21:00 12/22/20 19:36 Quetiapine Fumarate (SEROquel) 12.5 mg DAILY PO 12/20/20 09:00 12/23/20 07:17 Rivastigmine (Exelon) 1 patch DAILY TD 12/22/20 09:00 12/22/20 09:01 DC I have reviewed the current psychotropics carefully including drug interactions. Risk benefit ratio favors no change other than as noted in my dictated progress note. Diagnosis: Problems: (1) Impulse control disorder, unspecified (2) Anxiety disorder, unspecified (3) Dementia, vascular, with depression (4) Dementia, vascular, with delusions (5) Dementia in Alzheimer's disease with depression (6) Dementia in Alzheimer's disease with delusions (7) Major neurocognitive disorder (8) Dementia associated with alcoholism with behavioral disturbance ASHELY GRIFFITH MD Dec 23, 2020 07:40
[2020-12-23] MEDS: RIVASTIGMINE 9.5MG PATCH. TD SCH (08:06)
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
[2020-12-23 17:42] VITALS: BP 131/84
--- NOTE | 2020-12-23 21:06 | PDOC ---
Exam Note: Jaxon Note: Please also refer to the separate dictated note~for this date of service dictated separately.~Patient seen individually. Discussed the patient with Nursing staff reviewed the chart.~Reviewed interim history and current functioning. Reviewed vital signs,~Labs/ Radiology~and current medications noted below. Continue current treatment with the changes noted in the dictated addendum note Assessment: Vital Signs/I&O: Vital Signs Date Time Temp Pulse Resp B/P (MAP) Pulse Ox O2 Delivery O2 Flow Rate FiO2 12/23/20 17:42 98.6 77 18 131/84 (100) 96 12/19/20 16:01 Room Air I & O 12/22/20 12/22/20 12/23/20 15:00 23:00 07:00 Intake Total 720 ml 600 ml Balance 720 ml 600 ml Current Medications: Meds: Current Medications Medications (Trade) Dose Ordered Sig/Cedrick Route PRN Reason Start Time Stop Time Status Last Admin Dose Admin Rivastigmine (Exelon) 1 patch DAILY TD 12/23/20 09:00 12/23/20 08:06 Quetiapine Fumarate (SEROquel) 12.5 mg 0900,1700 PO 12/23/20 17:00 12/23/20 17:30 I have reviewed the current psychotropics carefully including drug interactions. Risk benefit ratio favors no change other than as noted in my dictated progress note. Diagnosis: Problems: (1) Impulse control disorder, unspecified (2) Anxiety disorder, unspecified (3) Dementia, vascular, with depression (4) Dementia, vascular, with delusions (5) Dementia in Alzheimer's disease with depression (6) Dementia in Alzheimer's disease with delusions (7) Major neurocognitive disorder (8) Dementia associated with alcoholism with behavioral disturbance ASHELY GRIFFITH MD Dec 23, 2020 21:06
[2020-12-24 06:00] VITALS: BP 174/94
[2020-12-24 06:55] LABS: BASO % 1 % (0-3); EOS # 0.3 x10^3/uL (0.0-0.7); EOS % 5 % (0-3); HEMOGLOBIN 12.9 g/dL (12.0-15.5); LYMPH # 1.3 x10^3/uL (1.0-4.8); LYMPH % 25 % (24-48); MEAN CORPUSCULAR HEMOGLOBIN 30 pg (25-35); MEAN CORPUSCULAR HGB CONC 33 g/dL (31-37); MEAN CORPUSCULAR VOLUME 90 fL (79-100); MONO # 0.6 x10^3/uL (0.0-1.1); MONO % 11 % (0-9); NEUT % 58 % (31-73); PLATELET COUNT 287 x10^3/uL (140-400); RED BLOOD COUNT 4.34 x10^6/uL (3.50-5.40); RED CELL DISTRIBUTION WIDTH 13.4 % (11.5-14.5); WHITE BLOOD COUNT 5.2 x10^3/uL (4.0-11.0)
[2020-12-24 07:07] LABS: ALBUMIN 3.1 g/dL (3.4-5.0); ALBUMIN/GLOBULIN RATIO 0.8 (1.0-1.7); CREATININE 0.9 mg/dL (0.6-1.0); GFR 59.4; POTASSIUM 4.4 mmol/L (3.5-5.1); TOTAL BILIRUBIN 0.4 mg/dL (0.2-1.0); TOTAL PROTEIN 6.8 g/dL (6.4-8.2)
[2020-12-24] MEDS: PANTOPRAZOLE 40 MG TABLET. PO SCH (07:57)
[2020-12-24] MEDS: RIVASTIGMINE 9.5MG PATCH. TD SCH (07:57)
[2020-12-24] MEDS: FOLIC ACID 1 MG TABLET PO SCH (07:57)
[2020-12-24] MEDS: THIAMINE 100 MG TABLET. PO SCH (07:57)
[2020-12-24] MEDS: QUEtiapine 25 MG TABLET. PO SCH ×3 (07:58→21:08)
[2020-12-24] MEDS: SERTRALINE 50 MG TABLET. PO SCH (08:00)
--- NOTE | 2020-12-24 08:04 | PDOC ---
Exam Note: Jaxon Note: This note is a late entry for 12/23/2020 covers elements not covered in my initial note. Subjective: The patient was reviewed in the morning of 12/23/2020 for a treatment team meeting with Brooklynn Amaral, Lexi Coulter and Sonali (high school social studies teacher), Liza Peters and Sabra, activity therapy and Raine RN, discussed and reviewed the chart. The patient slept 7 hours previous night. She was also seen individually in the evening with nursing staff. She was somewhat agitated. Received Zyprexa at 7 a.m. and takes her medications if she has told they are vitamins. Review of Systems: No CV, , pulmonary, eye, ENT system symptoms on review. Mental Status Exam: The patient is oriented to herself and situation and date of . Speech coherent. Abstraction fair. Language function intact. Attention span is short. Mood and affect remains anxious. No suicidal or homicidal ideation. Laboratory Data: Reviewed. Impression: Major neurocognitive disorder Alzheimer vascular with delusion, depression, behavioral disturbance. Anxiety disorder unspecified. Impulse co ntrol disorder unspecified. Plan: Increase Zoloft from 50 mg a day to 75 mg a day, Seroquel from 12.5 mg once a day and 25 mg h.s. to 12.5 mg twice a day and 25 mg h.s. Adjust further as clinically indicated. Assessment: Vital Signs/I&O: Vital Signs Date Time Temp Pulse Resp B/P (MAP) Pulse Ox O2 Delivery O2 Flow Rate FiO2 12/24/20 06:00 98.1 70 18 174/94 (120) 96 12/19/20 16:01 Room Air I & O 12/23/20 12/23/20 12/24/20 15:00 23:00 07:00 Intake Total 560 ml 320 ml Balance 560 ml 320 ml Labs: Laboratory Tests Test 12/24/20 06:25 White Blood Count 5.2 x10^3/uL (4.0-11.0) Red Blood Count 4.34 x10^6/uL (3.50-5.40) Hemoglobin 12.9 g/dL (12.0-15.5) Hematocrit 39.0 % (36.0-47.0) Mean Corpuscular Volume 90 fL (79-100) Mean Corpuscular Hemoglobin 30 pg (25-35) Mean Corpuscular Hemoglobin Concent 33 g/dL (31-37) Red Cell Distribution Width 13.4 % (11.5-14.5) Platelet Count 287 x10^3/uL (140-400) Neutrophils (%) (Auto) 58 % (31-73) Lymphocytes (%) (Auto) 25 % (24-48) Monocytes (%) (Auto) 11 % (0-9) H Eosinophils (%) (Auto) 5 % (0-3) H Basophils (%) (Auto) 1 % (0-3) Neutrophils # (Auto) 3.0 x10^3uL (1.8-7.7) Lymphocytes # (Auto) 1.3 x10^3/uL (1.0-4.8) Monocytes # (Auto) 0.6 x10^3/uL (0.0-1.1) Eosinophils # (Auto) 0.3 x10^3/uL (0.0-0.7) Basophils # (Auto) 0.0 x10^3/uL (0.0-0.2) Sodium Level 143 mmol/L (136-145) Potassium Level 4.4 mmol/L (3.5-5.1) Chloride Level 105 mmol/L (98-107) Carbon Dioxide Level 31 mmol/L (21-32) Anion Gap 7 (6-14) Blood Urea Nitrogen 27 mg/dL (7-20) H Creatinine 0.9 mg/dL (0.6-1.0) Estimated GFR (Cockcroft-Gault) 59.4 BUN/Creatinine Ratio 30 (6-20) H Glucose Level 97 mg/dL (70-99) Calcium Level 9.0 mg/dL (8.5-10.1) Total Bilirubin 0.4 mg/dL (0.2-1.0) Aspartate Amino Transferase (AST) 19 U/L (15-37) Alanine Aminotransferase (ALT) 27 U/L (14-59) Alkaline Phosphatase 88 U/L (46-116) Total Protein 6.8 g/dL (6.4-8.2) Albumin 3.1 g/dL (3.4-5.0) L Albumin/Globulin Ratio 0.8 (1.0-1.7) L Current Medications: Meds: Current Medications Medications (Trade) Dose Ordered Sig/Cedrick Route PRN Reason Start Time Stop Time Status Last Admin Dose Admin Rivastigmine (Exelon) 1 patch DAILY TD 12/23/20 09:00 12/24/20 07:57 Quetiapine Fumarate (SEROquel) 12.5 mg 0900,1700 PO 12/23/20 17:00 12/24/20 07:58 Sertraline HCl (Zoloft) 75 mg DAILY PO 12/24/20 09:00 12/24/20 08:00 I have reviewed the current psychotropics carefully including drug interactions. Risk benefit ratio favors no change other than as noted in my dictated progress note. Diagnosis: Problems: (1) Impulse control disorder, unspecified (2) Anxiety disorder, unspecified (3) Dementia, vascular, with depression (4) Dementia, vascular, with delusions (5) Dementia in Alzheimer's disease with depression (6) Dementia in Alzheimer's disease with delusions (7) Major neurocognitive disorder (8) Dementia associated with alcoholism with behavioral disturbance ASHELY GRIFFITH MD Dec 24, 2020 08:04
[2020-12-24 16:16] VITALS: BP 151/83
--- NOTE | 2020-12-24 20:54 | PDOC ---
Exam Note: Jaxon Note: Please also refer to the separate dictated note~for this date of service dictated separately.~Patient seen individually. Discussed the patient with Nursing staff reviewed the chart.~Reviewed interim history and current functioning. Reviewed vital signs,~Labs/ Radiology~and current medications noted below. Continue current treatment with the changes noted in the dictated addendum note Assessment: Vital Signs/I&O: Vital Signs Date Time Temp Pulse Resp B/P (MAP) Pulse Ox O2 Delivery O2 Flow Rate FiO2 12/24/20 16:16 98.1 81 16 151/83 (105) 95 Room Air I & O 12/23/20 12/23/20 12/24/20 15:00 23:00 07:00 Intake Total 560 ml 320 ml Balance 560 ml 320 ml Labs: Laboratory Tests Test 12/24/20 06:25 White Blood Count 5.2 x10^3/uL (4.0-11.0) Red Blood Count 4.34 x10^6/uL (3.50-5.40) Hemoglobin 12.9 g/dL (12.0-15.5) Hematocrit 39.0 % (36.0-47.0) Mean Corpuscular Volume 90 fL (79-100) Mean Corpuscular Hemoglobin 30 pg (25-35) Mean Corpuscular Hemoglobin Concent 33 g/dL (31-37) Red Cell Distribution Width 13.4 % (11.5-14.5) Platelet Count 287 x10^3/uL (140-400) Neutrophils (%) (Auto) 58 % (31-73) Lymphocytes (%) (Auto) 25 % (24-48) Monocytes (%) (Auto) 11 % (0-9) H Eosinophils (%) (Auto) 5 % (0-3) H Basophils (%) (Auto) 1 % (0-3) Neutrophils # (Auto) 3.0 x10^3uL (1.8-7.7) Lymphocytes # (Auto) 1.3 x10^3/uL (1.0-4.8) Monocytes # (Auto) 0.6 x10^3/uL (0.0-1.1) Eosinophils # (Auto) 0.3 x10^3/uL (0.0-0.7) Basophils # (Auto) 0.0 x10^3/uL (0.0-0.2) Sodium Level 143 mmol/L (136-145) Potassium Level 4.4 mmol/L (3.5-5.1) Chloride Level 105 mmol/L (98-107) Carbon Dioxide Level 31 mmol/L (21-32) Anion Gap 7 (6-14) Blood Urea Nitrogen 27 mg/dL (7-20) H Creatinine 0.9 mg/dL (0.6-1.0) Estimated GFR (Cockcroft-Gault) 59.4 BUN/Creatinine Ratio 30 (6-20) H Glucose Level 97 mg/dL (70-99) Calcium Level 9.0 mg/dL (8.5-10.1) Total Bilirubin 0.4 mg/dL (0.2-1.0) Aspartate Amino Transferase (AST) 19 U/L (15-37) Alanine Aminotransferase (ALT) 27 U/L (14-59) Alkaline Phosphatase 88 U/L (46-116) Total Protein 6.8 g/dL (6.4-8.2) Albumin 3.1 g/dL (3.4-5.0) L Albumin/Globulin Ratio 0.8 (1.0-1.7) L Current Medications: Meds: Current Medications Medications (Trade) Dose Ordered Sig/Cedrick Route PRN Reason Start Time Stop Time Status Last Admin Dose Admin Sertraline HCl (Zoloft) 75 mg DAILY PO 12/24/20 09:00 12/24/20 08:00 I have reviewed the current psychotropics carefully including drug interactions. Risk benefit ratio favors no change other than as noted in my dictated progress note. Diagnosis: Problems: (1) Impulse control disorder, unspecified (2) Anxiety disorder, unspecified (3) Dementia, vascular, with depression (4) Dementia, vascular, with delusions (5) Dementia in Alzheimer's disease with depression (6) Dementia in Alzheimer's disease with delusions (7) Major neurocognitive disorder (8) Dementia associated with alcoholism with behavioral disturbance ASHELY GRIFFITH MD Dec 24, 2020 20:54
[2020-12-25 05:27] VITALS: BP 174/80
[2020-12-25 06:30] VITALS: BP 174/80
[2020-12-25] MEDS: QUEtiapine 25 MG TABLET. PO SCH ×3 (08:33→19:37)
[2020-12-25] MEDS: SERTRALINE 50 MG TABLET. PO SCH (08:33)
[2020-12-25] MEDS: RIVASTIGMINE 9.5MG PATCH. TD SCH (08:34)
[2020-12-25] MEDS: FOLIC ACID 1 MG TABLET PO SCH (08:34)
[2020-12-25] MEDS: THIAMINE 100 MG TABLET. PO SCH (08:34)
[2020-12-25] MEDS: PANTOPRAZOLE 40 MG TABLET. PO SCH (08:34)
[2020-12-25] MEDS ORDERED: QUEtiapine 25 MG TABLET. PO SCH (09:00)
[2020-12-25 16:17] VITALS: BP 118/75
--- NOTE | 2020-12-25 21:36 | PDOC ---
Exam Note: Jaxon Note: Please also refer to the separate dictated note~for this date of service dictated separately.~Patient seen individually. Discussed the patient with Nursing staff reviewed the chart.~Reviewed interim history and current functioning. Reviewed vital signs,~Labs/ Radiology~and current medications noted below. Continue current treatment with the changes noted in the dictated addendum note Assessment: Vital Signs/I&O: Vital Signs Date Time Temp Pulse Resp B/P (MAP) Pulse Ox O2 Delivery O2 Flow Rate FiO2 12/25/20 16:17 98.8 88 18 118/75 (89) 96 12/25/20 06:30 Room Air I & O 12/24/20 12/24/20 12/25/20 14:59 22:59 06:59 Intake Total 680 ml 120 ml 240 ml Balance 680 ml 120 ml 240 ml Current Medications: Meds: Current Medications Medications (Trade) Dose Ordered Sig/Cedrick Route PRN Reason Start Time Stop Time Status Last Admin Dose Admin Acetaminophen (Tylenol) 650 mg PRN Q6HRS PRN PO MILD PAIN / TEMP > 100.3'F 12/16/20 12:45 UNV Multi-Ingredient Ointment (Analgesic [place]) 1 judy PRN QID PRN TP MUSCLE PAIN 12/16/20 12:45 Al Hydroxide/Mg Hydroxide (Mylanta Plus Xs) 15 ml PRN AFTMEALHC PRN PO DYSPEPSIA 12/16/20 12:45 Magnesium Hydroxide (Milk Of Magnesia) 2,400 mg PRN QHS PRN PO CONSTIPATION 12/16/20 12:45 Acetaminophen (Tylenol) 650 mg PRN Q4HRS PRN PO mild PAIN 12/16/20 12:45 12/21/20 15:02 Lorazepam (Ativan) 0.5 mg PRN Q1HR PRN PO ANXIETY 12/16/20 13:00 12/20/20 16:19 Olanzapine (ZyPREXA) 5 mg 1X PRN PRN PO ANXIETY / AGITATION 12/16/20 12:45 12/21/20 07:52 DC 12/16/20 21:55 Pantoprazole Sodium (Protonix) 40 mg DAILYAC PO 12/17/20 07:30 12/25/20 08:34 Thiamine HCl (Vitamin B-1) 100 mg DAILY PO 12/17/20 09:00 12/25/20 08:34 Folic Acid (Folic Acid) 1 mg DAILY PO 12/17/20 09:00 12/25/20 08:34 Influenza Virus Vaccine Quadrival (Fluzone Quad Syringe) 0.5 ml ONCE ONCE VAX IM 12/17/20 09:00 12/17/20 09:01 DC 12/17/20 08:52 Olanzapine (ZyPREXA ZYDIS) 2.5 mg PRN Q2HR PRN PO PSYCHOSIS 12/16/20 18:45 12/25/20 17:16 Sertraline HCl (Zoloft) 50 mg DAILY PO 12/21/20 09:00 12/23/20 10:06 DC 12/23/20 07:18 Sertraline HCl (Zoloft) 25 mg DAILY PO 12/18/20 09:00 12/20/20 09:59 DC 12/20/20 07:39 Rivastigmine (Exelon) 4.6 patch DAILY TD 12/18/20 09:00 12/22/20 08:43 DC 12/21/20 08:16 Rivastigmine (Exelon) 1 patch DAILY TD 12/23/20 09:00 12/25/20 08:34 Thiamine HCl (Vitamin B-1) 100 mg DAILY PO 12/18/20 09:00 12/18/20 13:09 DC Quetiapine Fumarate (SEROquel) 25 mg QHS PO 12/18/20 21:00 12/25/20 19:37 Quetiapine Fumarate (SEROquel) 12.5 mg DAILY PO 12/20/20 09:00 12/23/20 10:06 DC 12/23/20 07:17 Rivastigmine (Exelon) 1 patch DAILY TD 12/22/20 09:00 12/22/20 09:01 DC Quetiapine Fumarate (SEROquel) 12.5 mg 0900,1700 PO 12/23/20 17:00 12/25/20 17:16 Sertraline HCl (Zoloft) 75 mg DAILY PO 12/24/20 09:00 12/28/20 08:00 12/25/20 08:33 Quetiapine Fumarate (SEROquel) 12.5 mg 0900,1700 PO 12/25/20 09:00 UNV Sertraline HCl (Zoloft) 100 mg DAILY PO 12/28/20 09:00 I have reviewed the current psychotropics carefully including drug interactions. Risk benefit ratio favors no change other than as noted in my dictated progress note. Diagnosis: Problems: (1) Impulse control disorder, unspecified (2) Anxiety disorder, unspecified (3) Dementia, vascular, with depression (4) Dementia, vascular, with delusions (5) Dementia in Alzheimer's disease with depression (6) Dementia in Alzheimer's disease with delusions (7) Major neurocognitive disorder (8) Dementia associated with alcoholism with behavioral disturbance ASHELY GRIFFITH MD Dec 25, 2020 21:36
[2020-12-26 06:37] VITALS: BP 160/83
--- NOTE | 2020-12-26 07:45 | PDOC ---
Exam Note: Jaxon Note: This note is a late entry for 12/24/2020 covers elements not covered in my initial note. Subjective: The patient was seen individually in the evening of 12/24/2020 with Kerline CRUZ, discussed and reviewed the chart. The patient slept 6-1/2 hours previous night. She was quite paranoid in the evening, gets anxious, restless, wanting to go home, demanding. She has bills to pay and jobs to do. She is a nurse. She has poor insight into circumstances prompting admission. I addressed with her at some length. Review of Systems: No CV, , pulmonary, eye, ENT system symptoms on review. Mental Status Exam: The patient is oriented to herself and situation. Speech coherent, rapid at times. Abstraction fair. Computation impaired. Language function intact. Mood and affect remains somewhat labile. Laboratory Data: Reviewed. Impression: Major neurocognitive disorder Alzheimer vascular with delusion, depression, behavioral disturbance. Anxiety disorder unspecified. Impulse control disorder unspecified. Plan: No change from initial note. Assessment: Vital Signs/I&O: Vital Signs Date Time Temp Pulse Resp B/P (MAP) Pulse Ox O2 Delivery O2 Flow Rate FiO2 12/26/20 06:37 97.7 67 18 160/83 (108) 95 Room Air I & O 12/25/20 12/25/20 12/26/20 15:00 23:00 07:00 Intake Total 720 ml 480 ml Balance 720 ml 480 ml Current Medications: Meds: Current Medications Medications (Trade) Dose Ordered Sig/Cedrick Route PRN Reason Start Time Stop Time Status Last Admin Dose Admin Acetaminophen (Tylenol) 650 mg PRN Q6HRS PRN PO MILD PAIN / TEMP > 100.3'F 12/16/20 12:45 UNV Multi-Ingredient Ointment (Analgesic [place]) 1 judy PRN QID PRN TP MUSCLE PAIN 12/16/20 12:45 Al Hydroxide/Mg Hydroxide (Mylanta Plus Xs) 15 ml PRN AFTMEALHC PRN PO DYSPEPSIA 12/16/20 12:45 Magnesium Hydroxide (Milk Of Magnesia) 2,400 mg PRN QHS PRN PO CONSTIPATION 12/16/20 12:45 Acetaminophen (Tylenol) 650 mg PRN Q4HRS PRN PO mild PAIN 12/16/20 12:45 12/21/20 15:02 Lorazepam (Ativan) 0.5 mg PRN Q1HR PRN PO ANXIETY 12/16/20 13:00 12/20/20 16:19 Olanzapine (ZyPREXA) 5 mg 1X PRN PRN PO ANXIETY / AGITATION 12/16/20 12:45 12/21/20 07:52 DC 12/16/20 21:55 Pantoprazole Sodium (Protonix) 40 mg DAILYAC PO 12/17/20 07:30 12/25/20 08:34 Thiamine HCl (Vitamin B-1) 100 mg DAILY PO 12/17/20 09:00 12/25/20 08:34 Folic Acid (Folic Acid) 1 mg DAILY PO 12/17/20 09:00 12/25/20 08:34 Influenza Virus Vaccine Quadrival (Fluzone Quad Syringe) 0.5 ml ONCE ONCE VAX IM 12/17/20 09:00 12/17/20 09:01 DC 12/17/20 08:52 Olanzapine (ZyPREXA ZYDIS) 2.5 mg PRN Q2HR PRN PO PSYCHOSIS 12/16/20 18:45 12/25/20 17:16 Sertraline HCl (Zoloft) 50 mg DAILY PO 12/21/20 09:00 12/23/20 10:06 DC 12/23/20 07:18 Sertraline HCl (Zoloft) 25 mg DAILY PO 12/18/20 09:00 12/20/20 09:59 DC 12/20/20 07:39 Rivastigmine (Exelon) 4.6 patch DAILY TD 12/18/20 09:00 12/22/20 08:43 DC 12/21/20 08:16 Rivastigmine (Exelon) 1 patch DAILY TD 12/23/20 09:00 12/25/20 08:34 Thiamine HCl (Vitamin B-1) 100 mg DAILY PO 12/18/20 09:00 12/18/20 13:09 DC Quetiapine Fumarate (SEROquel) 25 mg QHS PO 12/18/20 21:00 12/25/20 19:37 Quetiapine Fumarate (SEROquel) 12.5 mg DAILY PO 12/20/20 09:00 12/23/20 10:06 DC 12/23/20 07:17 Rivastigmine (Exelon) 1 patch DAILY TD 12/22/20 09:00 12/22/20 09:01 DC Quetiapine Fumarate (SEROquel) 12.5 mg 0900,1700 PO 12/23/20 17:00 12/25/20 17:16 Sertraline HCl (Zoloft) 75 mg DAILY PO 12/24/20 09:00 12/28/20 08:00 12/25/20 08:33 Quetiapine Fumarate (SEROquel) 12.5 mg 0900,1700 PO 12/25/20 09:00 UNV Sertraline HCl (Zoloft) 100 mg DAILY PO 12/28/20 09:00 I have reviewed the current psychotropics carefully including drug interactions. Risk benefit ratio favors no change other than as noted in my dictated progress note. Diagnosis: Problems: (1) Impulse control disorder, unspecified (2) Anxiety disorder, unspecified (3) Dementia, vascular, with depression (4) Dementia, vascular, with delusions (5) Dementia in Alzheimer's disease with depression (6) Dementia in Alzheimer's disease with delusions (7) Major neurocognitive disorder (8) Dementia associated with alcoholism with behavioral disturbance ASHELY GRIFFITH MD Dec 26, 2020 07:45
[2020-12-26] MEDS: RIVASTIGMINE 9.5MG PATCH. TD SCH (07:58)
[2020-12-26] MEDS: PANTOPRAZOLE 40 MG TABLET. PO SCH (07:58)
[2020-12-26] MEDS: FOLIC ACID 1 MG TABLET PO SCH (07:58)
[2020-12-26] MEDS: THIAMINE 100 MG TABLET. PO SCH (07:59)
[2020-12-26] MEDS: QUEtiapine 25 MG TABLET. PO SCH ×3 (07:59→19:32)
[2020-12-26] MEDS: SERTRALINE 50 MG TABLET. PO SCH (07:59)
--- NOTE | 2020-12-26 08:01 | PDOC ---
Exam Note: Jaxon Note: This note is a late entry for 12/25/2020 covers elements not covered in my initial note. Subjective: The patient was seen individually in the evening of 12/25/2020 with Kerline CRUZ, discussed and reviewed the chart. The patient slept 8-1/2 hours previous night. She was somewhat irritable, anxious, hyperverbal, demanding to be discharged. Review of Systems: I met with her individually at length. No CV, , pulmonary, eye, ENT system symptoms on review. Mental Status Exam: The patient is oriented to herself and situation. Speech coherent, rapid at times. Abstraction fair. Computation impaired. Language function intact. Mood and affect remains anxious, labile. Laboratory Data: Reviewed. Impression: Major neurocognitive disorder Alzheimer vascular with delusion, depression, behavioral disturbance. Anxiety disorder unspecified. Impulse control disorder unspecified. Plan: No change from initial note but we will go ahead and increase Zoloft to 100 mg day after she has been on 75 mg for 5 days. Rest unchanged. Assessment: Vital Signs/I&O: Vital Signs Date Time Temp Pulse Resp B/P (MAP) Pulse Ox O2 Delivery O2 Flow Rate FiO2 12/26/20 06:37 97.7 67 18 160/83 (108) 95 Room Air I & O 12/25/20 12/25/20 12/26/20 15:00 23:00 07:00 Intake Total 720 ml 480 ml Balance 720 ml 480 ml Current Medications: Meds: Current Medications Medications (Trade) Dose Ordered Sig/Cedrick Route PRN Reason Start Time Stop Time Status Last Admin Dose Admin Acetaminophen (Tylenol) 650 mg PRN Q6HRS PRN PO MILD PAIN / TEMP > 100.3'F 12/16/20 12:45 UNV Multi-Ingredient Ointment (Analgesic [place]) 1 judy PRN QID PRN TP MUSCLE PAIN 12/16/20 12:45 Al Hydroxide/Mg Hydroxide (Mylanta Plus Xs) 15 ml PRN AFTMEALHC PRN PO DYSPEPSIA 12/16/20 12:45 Magnesium Hydroxide (Milk Of Magnesia) 2,400 mg PRN QHS PRN PO CONSTIPATION 12/16/20 12:45 Acetaminophen (Tylenol) 650 mg PRN Q4HRS PRN PO mild PAIN 12/16/20 12:45 12/21/20 15:02 Lorazepam (Ativan) 0.5 mg PRN Q1HR PRN PO ANXIETY 12/16/20 13:00 12/20/20 16:19 Olanzapine (ZyPREXA) 5 mg 1X PRN PRN PO ANXIETY / AGITATION 12/16/20 12:45 12/21/20 07:52 DC 12/16/20 21:55 Pantoprazole Sodium (Protonix) 40 mg DAILYAC PO 12/17/20 07:30 12/26/20 07:58 Thiamine HCl (Vitamin B-1) 100 mg DAILY PO 12/17/20 09:00 12/26/20 07:59 Folic Acid (Folic Acid) 1 mg DAILY PO 12/17/20 09:00 12/26/20 07:58 Influenza Virus Vaccine Quadrival (Fluzone Quad Syringe) 0.5 ml ONCE ONCE VAX IM 12/17/20 09:00 12/17/20 09:01 DC 12/17/20 08:52 Olanzapine (ZyPREXA ZYDIS) 2.5 mg PRN Q2HR PRN PO PSYCHOSIS 12/16/20 18:45 12/25/20 17:16 Sertraline HCl (Zoloft) 50 mg DAILY PO 12/21/20 09:00 12/23/20 10:06 DC 12/23/20 07:18 Sertraline HCl (Zoloft) 25 mg DAILY PO 12/18/20 09:00 12/20/20 09:59 DC 12/20/20 07:39 Rivastigmine (Exelon) 4.6 patch DAILY TD 12/18/20 09:00 12/22/20 08:43 DC 12/21/20 08:16 Rivastigmine (Exelon) 1 patch DAILY TD 12/23/20 09:00 12/26/20 07:58 Thiamine HCl (Vitamin B-1) 100 mg DAILY PO 12/18/20 09:00 12/18/20 13:09 DC Quetiapine Fumarate (SEROquel) 25 mg QHS PO 12/18/20 21:00 12/25/20 19:37 Quetiapine Fumarate (SEROquel) 12.5 mg DAILY PO 12/20/20 09:00 12/23/20 10:06 DC 12/23/20 07:17 Rivastigmine (Exelon) 1 patch DAILY TD 12/22/20 09:00 12/22/20 09:01 DC Quetiapine Fumarate (SEROquel) 12.5 mg 0900,1700 PO 12/23/20 17:00 12/26/20 07:59 Sertraline HCl (Zoloft) 75 mg DAILY PO 12/24/20 09:00 12/28/20 08:00 12/26/20 07:59 Quetiapine Fumarate (SEROquel) 12.5 mg 0900,1700 PO 12/25/20 09:00 UNV Sertraline HCl (Zoloft) 100 mg DAILY PO 12/28/20 09:00 I have reviewed the current psychotropics carefully including drug interactions. Risk benefit ratio favors no change other than as noted in my dictated progress note. Diagnosis: Problems: (1) Impulse control disorder, unspecified (2) Anxiety disorder, unspecified (3) Dementia, vascular, with depression (4) Dementia, vascular, with delusions (5) Dementia in Alzheimer's disease with depression (6) Dementia in Alzheimer's disease with delusions (7) Major neurocognitive disorder (8) Dementia associated with alcoholism with behavioral disturbance ASHELY GRIFFITH MD Dec 26, 2020 08:01
[2020-12-26 16:22] VITALS: BP 114/86
--- NOTE | 2020-12-26 21:06 | PDOC ---
Exam Note: Jaxon Note: Please also refer to the separate dictated note~for this date of service dictated separately.~Patient seen individually. Discussed the patient with Nursing staff reviewed the chart.~Reviewed interim history and current functioning. Reviewed vital signs,~Labs/ Radiology~and current medications noted below. Continue current treatment with the changes noted in the dictated addendum note Assessment: Vital Signs/I&O: Vital Signs Date Time Temp Pulse Resp B/P (MAP) Pulse Ox O2 Delivery O2 Flow Rate FiO2 12/26/20 16:22 98.8 77 20 114/86 (95) 96 Room Air I & O 12/25/20 12/25/20 12/26/20 14:59 22:59 06:59 Intake Total 720 ml 480 ml Balance 720 ml 480 ml Current Medications: Meds: Current Medications Medications (Trade) Dose Ordered Sig/Cedrick Route PRN Reason Start Time Stop Time Status Last Admin Dose Admin Acetaminophen (Tylenol) 650 mg PRN Q6HRS PRN PO MILD PAIN / TEMP > 100.3'F 12/16/20 12:45 UNV Multi-Ingredient Ointment (Analgesic [place]) 1 judy PRN QID PRN TP MUSCLE PAIN 12/16/20 12:45 Al Hydroxide/Mg Hydroxide (Mylanta Plus Xs) 15 ml PRN AFTMEALHC PRN PO DYSPEPSIA 12/16/20 12:45 Magnesium Hydroxide (Milk Of Magnesia) 2,400 mg PRN QHS PRN PO CONSTIPATION 12/16/20 12:45 Acetaminophen (Tylenol) 650 mg PRN Q4HRS PRN PO mild PAIN 12/16/20 12:45 12/21/20 15:02 Lorazepam (Ativan) 0.5 mg PRN Q1HR PRN PO ANXIETY 12/16/20 13:00 12/20/20 16:19 Olanzapine (ZyPREXA) 5 mg 1X PRN PRN PO ANXIETY / AGITATION 12/16/20 12:45 12/21/20 07:52 DC 12/16/20 21:55 Pantoprazole Sodium (Protonix) 40 mg DAILYAC PO 12/17/20 07:30 12/26/20 07:58 Thiamine HCl (Vitamin B-1) 100 mg DAILY PO 12/17/20 09:00 12/26/20 07:59 Folic Acid (Folic Acid) 1 mg DAILY PO 12/17/20 09:00 12/26/20 07:58 Influenza Virus Vaccine Quadrival (Fluzone Quad Syringe) 0.5 ml ONCE ONCE VAX IM 12/17/20 09:00 12/17/20 09:01 DC 12/17/20 08:52 Olanzapine (ZyPREXA ZYDIS) 2.5 mg PRN Q2HR PRN PO PSYCHOSIS 12/16/20 18:45 12/26/20 08:20 Sertraline HCl (Zoloft) 50 mg DAILY PO 12/21/20 09:00 12/23/20 10:06 DC 12/23/20 07:18 Sertraline HCl (Zoloft) 25 mg DAILY PO 12/18/20 09:00 12/20/20 09:59 DC 12/20/20 07:39 Rivastigmine (Exelon) 4.6 patch DAILY TD 12/18/20 09:00 12/22/20 08:43 DC 12/21/20 08:16 Rivastigmine (Exelon) 1 patch DAILY TD 12/23/20 09:00 12/26/20 07:58 Thiamine HCl (Vitamin B-1) 100 mg DAILY PO 12/18/20 09:00 12/18/20 13:09 DC Quetiapine Fumarate (SEROquel) 25 mg QHS PO 12/18/20 21:00 12/26/20 19:32 Quetiapine Fumarate (SEROquel) 12.5 mg DAILY PO 12/20/20 09:00 12/23/20 10:06 DC 12/23/20 07:17 Rivastigmine (Exelon) 1 patch DAILY TD 12/22/20 09:00 12/22/20 09:01 DC Quetiapine Fumarate (SEROquel) 12.5 mg 0900,1700 PO 12/23/20 17:00 12/26/20 17:16 Sertraline HCl (Zoloft) 75 mg DAILY PO 12/24/20 09:00 12/28/20 08:00 12/26/20 07:59 Quetiapine Fumarate (SEROquel) 12.5 mg 0900,1700 PO 12/25/20 09:00 UNV Sertraline HCl (Zoloft) 100 mg DAILY PO 12/28/20 09:00 I have reviewed the current psychotropics carefully including drug interactions. Risk benefit ratio favors no change other than as noted in my dictated progress note. Diagnosis: Problems: (1) Impulse control disorder, unspecified (2) Anxiety disorder, unspecified (3) Dementia, vascular, with depression (4) Dementia, vascular, with delusions (5) Dementia in Alzheimer's disease with depression (6) Dementia in Alzheimer's disease with delusions (7) Major neurocognitive disorder (8) Dementia associated with alcoholism with behavioral disturbance ASHELY GRIFFITH MD Dec 26, 2020 21:06
[2020-12-27 06:29] VITALS: BP 175/73
--- NOTE | 2020-12-27 08:35 | PDOC ---
Exam Note: Jaxon Note: This note is a late entry for 12/26/2020 covers elements not covered in my initial note. Subjective: The patient was seen individually in the evening of 12/26/2020 with Kerline CRUZ, discussed and reviewed the chart. The patient slept 5-3/4 hours previous night. She has been quite obsessive regarding discharge. Zoloft is being increased. Review of Systems: No CV, , pulmonary, eye, ENT system symptoms on review. Mental Status Exam: The patient is oriented to herself and situation. Speech coherent, pressured regarding discharge. Abstraction fair. Computation impaired. Language function intact. Mood and affect remains anxious. Laboratory Data: Reviewed. Impression: Major neurocognitive disorder Alzheimer vascular with delusion, depression, behavioral disturbance. Anxiety disorder unspecified. Impulse control disorder unspecified. Plan: No change from initial note. Assessment: Vital Signs/I&O: Vital Signs Date Time Temp Pulse Resp B/P (MAP) Pulse Ox O2 Delivery O2 Flow Rate FiO2 12/27/20 06:29 97.4 70 18 175/73 (107) 94 Room Air I & O 12/26/20 12/26/20 12/27/20 15:00 23:00 07:00 Intake Total 840 ml 600 ml Balance 840 ml 600 ml Current Medications: Meds: Current Medications Medications (Trade) Dose Ordered Sig/Cedrick Route PRN Reason Start Time Stop Time Status Last Admin Dose Admin Acetaminophen (Tylenol) 650 mg PRN Q6HRS PRN PO MILD PAIN / TEMP > 100.3'F 12/16/20 12:45 UNV Multi-Ingredient Ointment (Analgesic [place]) 1 judy PRN QID PRN TP MUSCLE PAIN 12/16/20 12:45 Al Hydroxide/Mg Hydroxide (Mylanta Plus Xs) 15 ml PRN AFTMEALHC PRN PO DYSPEPSIA 12/16/20 12:45 Magnesium Hydroxide (Milk Of Magnesia) 2,400 mg PRN QHS PRN PO CONSTIPATION 12/16/20 12:45 Acetaminophen (Tylenol) 650 mg PRN Q4HRS PRN PO mild PAIN 12/16/20 12:45 12/21/20 15:02 Lorazepam (Ativan) 0.5 mg PRN Q1HR PRN PO ANXIETY 12/16/20 13:00 12/20/20 16:19 Olanzapine (ZyPREXA) 5 mg 1X PRN PRN PO ANXIETY / AGITATION 12/16/20 12:45 12/21/20 07:52 DC 12/16/20 21:55 Pantoprazole Sodium (Protonix) 40 mg DAILYAC PO 12/17/20 07:30 12/26/20 07:58 Thiamine HCl (Vitamin B-1) 100 mg DAILY PO 12/17/20 09:00 12/26/20 07:59 Folic Acid (Folic Acid) 1 mg DAILY PO 12/17/20 09:00 12/26/20 07:58 Influenza Virus Vaccine Quadrival (Fluzone Quad Syringe) 0.5 ml ONCE ONCE VAX IM 12/17/20 09:00 12/17/20 09:01 DC 12/17/20 08:52 Olanzapine (ZyPREXA ZYDIS) 2.5 mg PRN Q2HR PRN PO PSYCHOSIS 12/16/20 18:45 12/26/20 08:20 Sertraline HCl (Zoloft) 50 mg DAILY PO 12/21/20 09:00 12/23/20 10:06 DC 12/23/20 07:18 Sertraline HCl (Zoloft) 25 mg DAILY PO 12/18/20 09:00 12/20/20 09:59 DC 12/20/20 07:39 Rivastigmine (Exelon) 4.6 patch DAILY TD 12/18/20 09:00 12/22/20 08:43 DC 12/21/20 08:16 Rivastigmine (Exelon) 1 patch DAILY TD 12/23/20 09:00 12/26/20 07:58 Thiamine HCl (Vitamin B-1) 100 mg DAILY PO 12/18/20 09:00 12/18/20 13:09 DC Quetiapine Fumarate (SEROquel) 25 mg QHS PO 12/18/20 21:00 12/26/20 19:32 Quetiapine Fumarate (SEROquel) 12.5 mg DAILY PO 12/20/20 09:00 12/23/20 10:06 DC 12/23/20 07:17 Rivastigmine (Exelon) 1 patch DAILY TD 12/22/20 09:00 12/22/20 09:01 DC Quetiapine Fumarate (SEROquel) 12.5 mg 0900,1700 PO 12/23/20 17:00 12/26/20 17:16 Sertraline HCl (Zoloft) 75 mg DAILY PO 12/24/20 09:00 12/28/20 08:00 12/26/20 07:59 Quetiapine Fumarate (SEROquel) 12.5 mg 0900,1700 PO 12/25/20 09:00 UNV Sertraline HCl (Zoloft) 100 mg DAILY PO 12/28/20 09:00 I have reviewed the current psychotropics carefully including drug interactions. Risk benefit ratio favors no change other than as noted in my dictated progress note. Diagnosis: Problems: (1) Impulse control disorder, unspecified (2) Anxiety disorder, unspecified (3) Dementia, vascular, with depression (4) Dementia, vascular, with delusions (5) Dementia in Alzheimer's disease with depression (6) Dementia in Alzheimer's disease with delusions (7) Major neurocognitive disorder (8) Dementia associated with alcoholism with behavioral disturbance ASHELY GRIFFITH MD Dec 27, 2020 08:35
[2020-12-27] MEDS: PANTOPRAZOLE 40 MG TABLET. PO SCH (08:45)
[2020-12-27] MEDS: FOLIC ACID 1 MG TABLET PO SCH (08:45)
[2020-12-27] MEDS: THIAMINE 100 MG TABLET. PO SCH (08:46)
[2020-12-27] MEDS: QUEtiapine 25 MG TABLET. PO SCH ×3 (08:46→19:18)
[2020-12-27] MEDS: SERTRALINE 50 MG TABLET. PO SCH (08:46)
[2020-12-27] MEDS: RIVASTIGMINE 9.5MG PATCH. TD SCH (08:46)
[2020-12-27] MEDS: LORazepam 0.5 MG TABLET PO PRN ×2 (14:25→19:19)
[2020-12-27 16:11] VITALS: BP 133/79
--- NOTE | 2020-12-27 21:26 | PDOC ---
Exam Note: Jaxon Note: Please also refer to the separate dictated note~for this date of service dictated separately.~Patient seen individually. Discussed the patient with Nursing staff reviewed the chart.~Reviewed interim history and current functioning. Reviewed vital signs,~Labs/ Radiology~and current medications noted below. Continue current treatment with the changes noted in the dictated addendum note Assessment: Vital Signs/I&O: Vital Signs Date Time Temp Pulse Resp B/P (MAP) Pulse Ox O2 Delivery O2 Flow Rate FiO2 12/27/20 16:11 98.2 73 16 133/79 (97) 95 12/27/20 06:29 Room Air I & O 12/26/20 12/26/20 12/27/20 15:00 23:00 07:00 Intake Total 840 ml 600 ml Balance 840 ml 600 ml Current Medications: Meds: Current Medications Medications (Trade) Dose Ordered Sig/Cedrick Route PRN Reason Start Time Stop Time Status Last Admin Dose Admin Acetaminophen (Tylenol) 650 mg PRN Q6HRS PRN PO MILD PAIN / TEMP > 100.3'F 12/16/20 12:45 UNV Multi-Ingredient Ointment (Analgesic [place]) 1 judy PRN QID PRN TP MUSCLE PAIN 12/16/20 12:45 Al Hydroxide/Mg Hydroxide (Mylanta Plus Xs) 15 ml PRN AFTMEALHC PRN PO DYSPEPSIA 12/16/20 12:45 Magnesium Hydroxide (Milk Of Magnesia) 2,400 mg PRN QHS PRN PO CONSTIPATION 12/16/20 12:45 Acetaminophen (Tylenol) 650 mg PRN Q4HRS PRN PO mild PAIN 12/16/20 12:45 12/21/20 15:02 Lorazepam (Ativan) 0.5 mg PRN Q1HR PRN PO ANXIETY 12/16/20 13:00 12/27/20 19:19 Olanzapine (ZyPREXA) 5 mg 1X PRN PRN PO ANXIETY / AGITATION 12/16/20 12:45 12/21/20 07:52 DC 12/16/20 21:55 Pantoprazole Sodium (Protonix) 40 mg DAILYAC PO 12/17/20 07:30 12/27/20 08:45 Thiamine HCl (Vitamin B-1) 100 mg DAILY PO 12/17/20 09:00 12/27/20 08:46 Folic Acid (Folic Acid) 1 mg DAILY PO 12/17/20 09:00 12/27/20 08:45 Influenza Virus Vaccine Quadrival (Fluzone Quad Syringe) 0.5 ml ONCE ONCE VAX IM 12/17/20 09:00 12/17/20 09:01 DC 12/17/20 08:52 Olanzapine (ZyPREXA ZYDIS) 2.5 mg PRN Q2HR PRN PO PSYCHOSIS 12/16/20 18:45 12/27/20 19:20 Sertraline HCl (Zoloft) 50 mg DAILY PO 12/21/20 09:00 12/23/20 10:06 DC 12/23/20 07:18 Sertraline HCl (Zoloft) 25 mg DAILY PO 12/18/20 09:00 12/20/20 09:59 DC 12/20/20 07:39 Rivastigmine (Exelon) 4.6 patch DAILY TD 12/18/20 09:00 12/22/20 08:43 DC 12/21/20 08:16 Rivastigmine (Exelon) 1 patch DAILY TD 12/23/20 09:00 12/27/20 08:46 Thiamine HCl (Vitamin B-1) 100 mg DAILY PO 12/18/20 09:00 12/18/20 13:09 DC Quetiapine Fumarate (SEROquel) 25 mg QHS PO 12/18/20 21:00 12/27/20 19:18 Quetiapine Fumarate (SEROquel) 12.5 mg DAILY PO 12/20/20 09:00 12/23/20 10:06 DC 12/23/20 07:17 Rivastigmine (Exelon) 1 patch DAILY TD 12/22/20 09:00 12/22/20 09:01 DC Quetiapine Fumarate (SEROquel) 12.5 mg 0900,1700 PO 12/23/20 17:00 12/27/20 17:28 Sertraline HCl (Zoloft) 75 mg DAILY PO 12/24/20 09:00 12/27/20 17:49 DC 12/27/20 08:46 Quetiapine Fumarate (SEROquel) 12.5 mg 0900,1700 PO 12/25/20 09:00 UNV Sertraline HCl (Zoloft) 100 mg DAILY PO 12/28/20 09:00 12/27/20 17:49 DC Fluvoxamine Maleate (Luvox) 25 mg DAILY PO 12/28/20 09:00 12/30/20 12:00 Fluvoxamine Maleate (Luvox) 50 mg DAILY PO 12/31/20 09:00 I have reviewed the current psychotropics carefully including drug interactions. Risk benefit ratio favors no change other than as noted in my dictated progress note. Diagnosis: Problems: (1) Impulse control disorder, unspecified (2) Anxiety disorder, unspecified (3) Dementia, vascular, with depression (4) Dementia, vascular, with delusions (5) Dementia in Alzheimer's disease with depression (6) Dementia in Alzheimer's disease with delusions (7) Major neurocognitive disorder (8) Dementia associated with alcoholism with behavioral disturbance ASHELY GRIFFITH MD Dec 27, 2020 21:26
[2020-12-28 06:22] VITALS: BP 151/70
[2020-12-28] MEDS: FOLIC ACID 1 MG TABLET PO SCH (08:18)
[2020-12-28] MEDS: THIAMINE 100 MG TABLET. PO SCH (08:18)
[2020-12-28] MEDS: PANTOPRAZOLE 40 MG TABLET. PO SCH (08:18)
[2020-12-28] MEDS: RIVASTIGMINE 9.5MG PATCH. TD SCH (08:19)
[2020-12-28] MEDS: QUEtiapine 25 MG TABLET. PO SCH ×3 (08:19→19:54)
[2020-12-28] MEDS ORDERED: SERTRALINE 100 MG TABLET. PO SCH (09:00)
[2020-12-28 16:07] VITALS: BP 129/57
--- NOTE | 2020-12-28 21:12 | PDOC ---
Exam Note: Jaxon Note: Please also refer to the separate dictated note~for this date of service dictated separately.~Patient seen individually. Discussed the patient with Nursing staff reviewed the chart.~Reviewed interim history and current functioning. Reviewed vital signs,~Labs/ Radiology~and current medications noted below. Continue current treatment with the changes noted in the dictated addendum note Assessment: Vital Signs/I&O: Vital Signs Date Time Temp Pulse Resp B/P (MAP) Pulse Ox O2 Delivery O2 Flow Rate FiO2 12/28/20 16:07 98.6 74 18 129/57 (81) 96 12/28/20 06:22 Room Air I & O 12/27/20 12/27/20 12/28/20 15:00 23:00 07:00 Intake Total 600 ml 320 ml Balance 600 ml 320 ml Current Medications: Meds: Current Medications Medications (Trade) Dose Ordered Sig/Cedrick Route PRN Reason Start Time Stop Time Status Last Admin Dose Admin Fluvoxamine Maleate (Luvox) 25 mg DAILY PO 12/28/20 09:00 12/30/20 12:00 12/28/20 08:18 I have reviewed the current psychotropics carefully including drug interactions. Risk benefit ratio favors no change other than as noted in my dictated progress note. Diagnosis: Problems: (1) Impulse control disorder, unspecified (2) Anxiety disorder, unspecified (3) Dementia, vascular, with depression (4) Dementia, vascular, with delusions (5) Dementia in Alzheimer's disease with depression (6) Dementia in Alzheimer's disease with delusions (7) Major neurocognitive disorder (8) Dementia associated with alcoholism with behavioral disturbance ASHELY GRIFFITH MD Dec 28, 2020 21:12
--- NOTE | 2020-12-28 21:12 | PDOC ---
Exam Note: Jaxon Note: This note is a late entry for 12/27/2020 covers elements not covered in my initial note. Subjective: The patient was seen individually in the evening of 12/27/2020 with vEelyne CRUZ, discussed and reviewed the chart. The patient slept 8 hours previous night. She did well till shower time previous night and then took a shower later. After refusing she received Ativan, Zyprexa at 14.30 p.m. Review of Systems: No CV, , pulmonary, eye, ENT system symptoms on review. Mental Status Exam: The patient is oriented to herself and situation. Speech coherent, rapid at times. Abstraction fair. Computation impaired. Language function intact. Mood and affect remains somewhat anxious, labile. She is quite obsessive. Laboratory Data: Reviewed. Impression: Major neurocognitive disorder Alzheimer vascular with delusion, depression, behavioral disturbance. Anxiety disorder unspecified. Impulse control disorder unspecified. Plan: Given her marked OCD symptoms repetitive verbalizations, we will go ahead and change Zoloft to Luvox 25 mg a day for 3 days, then 50 mg a day thereafter. Rest unchanged for now. Assessment: Vital Signs/I&O: Vital Signs Date Time Temp Pulse Resp B/P (MAP) Pulse Ox O2 Delivery O2 Flow Rate FiO2 12/28/20 16:07 98.6 74 18 129/57 (81) 96 12/28/20 06:22 Room Air I & O 12/27/20 12/27/20 12/28/20 15:00 23:00 07:00 Intake Total 600 ml 320 ml Balance 600 ml 320 ml Current Medications: Meds: Current Medications Medications (Trade) Dose Ordered Sig/Cedrick Route PRN Reason Start Time Stop Time Status Last Admin Dose Admin Fluvoxamine Maleate (Luvox) 25 mg DAILY PO 12/28/20 09:00 12/30/20 12:00 12/28/20 08:18 I have reviewed the current psychotropics carefully including drug interactions. Risk benefit ratio favors no change other than as noted in my dictated progress note. Diagnosis: Problems: (1) Impulse control disorder, unspecified (2) Anxiety disorder, unspecified (3) Dementia, vascular, with depression (4) Dementia, vascular, with delusions (5) Dementia in Alzheimer's disease with depression (6) Dementia in Alzheimer's disease with delusions (7) Major neurocognitive disorder (8) Dementia associated with alcoholism with behavioral disturbance ASHELY GRIFFITH MD Dec 28, 2020 21:12
[2020-12-29 06:30] VITALS: BP 176/68
[2020-12-29] MEDS: THIAMINE 100 MG TABLET. PO SCH (07:45)
[2020-12-29] MEDS: RIVASTIGMINE 9.5MG PATCH. TD SCH (07:48)
[2020-12-29] MEDS: QUEtiapine 25 MG TABLET. PO SCH ×3 (07:48→19:52)
[2020-12-29] MEDS: PANTOPRAZOLE 40 MG TABLET. PO SCH (07:48)
[2020-12-29] MEDS: FOLIC ACID 1 MG TABLET PO SCH (07:48)
--- NOTE | 2020-12-29 08:14 | PDOC ---
Exam Note: Jaxon Note: This note is a late entry for 12/28/2020 covers elements not covered in my initial note. Subjective: The patient was seen individually in the evening of 12/28/2020 with Linda CRUZ, discussed and reviewed the chart. The patient slept 7-1/2 hours previous night. Overall she is doing reasonably well. She is less obsessed about discharge. She has the card of Lexi [id number] and was pleased to tell me that Lexi is working hard at her discharge plans. She was resistive to showers and I addressed this with her. She is accepting to make a change. Review of Systems: No CV, , pulmonary, eye, ENT system symptoms on review. Mental Status Exam: The patient is oriented to herself and situation. Speech coherent Abstraction fair. Computation impaired. Language function intact. Mood and affect remains somewhat anxious, labile. Laboratory Data: Reviewed. Impression: Major neurocognitive disorder Alzheimer vascular with delusion, depression, behavioral disturbance. Anxiety disorder unspecified. Impulse control disorder unspecified. Plan: No change from initial note. Assessment: Vital Signs/I&O: Vital Signs Date Time Temp Pulse Resp B/P (MAP) Pulse Ox O2 Delivery O2 Flow Rate FiO2 12/29/20 06:30 97.9 68 20 176/68 (104) 96 Room Air I & O 12/28/20 12/28/20 12/29/20 15:00 23:00 07:00 Intake Total 840 ml 480 ml Balance 840 ml 480 ml Current Medications: Meds: Current Medications Medications (Trade) Dose Ordered Sig/Cedrick Route PRN Reason Start Time Stop Time Status Last Admin Dose Admin Acetaminophen (Tylenol) 650 mg PRN Q6HRS PRN PO MILD PAIN / TEMP > 100.3'F 12/16/20 12:45 UNV Multi-Ingredient Ointment (Analgesic [place]) 1 judy PRN QID PRN TP MUSCLE PAIN 12/16/20 12:45 Al Hydroxide/Mg Hydroxide (Mylanta Plus Xs) 15 ml PRN AFTMEALHC PRN PO DYSPEPSIA 12/16/20 12:45 Magnesium Hydroxide (Milk Of Magnesia) 2,400 mg PRN QHS PRN PO CONSTIPATION 12/16/20 12:45 Acetaminophen (Tylenol) 650 mg PRN Q4HRS PRN PO mild PAIN 12/16/20 12:45 12/21/20 15:02 Lorazepam (Ativan) 0.5 mg PRN Q1HR PRN PO ANXIETY 12/16/20 13:00 12/27/20 19:19 Olanzapine (ZyPREXA) 5 mg 1X PRN PRN PO ANXIETY / AGITATION 12/16/20 12:45 12/21/20 07:52 DC 12/16/20 21:55 Pantoprazole Sodium (Protonix) 40 mg DAILYAC PO 12/17/20 07:30 12/29/20 07:48 Thiamine HCl (Vitamin B-1) 100 mg DAILY PO 12/17/20 09:00 12/29/20 07:45 Folic Acid (Folic Acid) 1 mg DAILY PO 12/17/20 09:00 12/29/20 07:48 Influenza Virus Vaccine Quadrival (Fluzone Quad Syringe) 0.5 ml ONCE ONCE VAX IM 12/17/20 09:00 12/17/20 09:01 DC 12/17/20 08:52 Olanzapine (ZyPREXA ZYDIS) 2.5 mg PRN Q2HR PRN PO PSYCHOSIS 12/16/20 18:45 12/28/20 10:29 Sertraline HCl (Zoloft) 50 mg DAILY PO 12/21/20 09:00 12/23/20 10:06 DC 12/23/20 07:18 Sertraline HCl (Zoloft) 25 mg DAILY PO 12/18/20 09:00 12/20/20 09:59 DC 12/20/20 07:39 Rivastigmine (Exelon) 4.6 patch DAILY TD 12/18/20 09:00 12/22/20 08:43 DC 12/21/20 08:16 Rivastigmine (Exelon) 1 patch DAILY TD 12/23/20 09:00 12/29/20 07:48 Thiamine HCl (Vitamin B-1) 100 mg DAILY PO 12/18/20 09:00 12/18/20 13:09 DC Quetiapine Fumarate (SEROquel) 25 mg QHS PO 12/18/20 21:00 12/28/20 19:54 Quetiapine Fumarate (SEROquel) 12.5 mg DAILY PO 12/20/20 09:00 12/23/20 10:06 DC 12/23/20 07:17 Rivastigmine (Exelon) 1 patch DAILY TD 12/22/20 09:00 12/22/20 09:01 DC Quetiapine Fumarate (SEROquel) 12.5 mg 0900,1700 PO 12/23/20 17:00 12/29/20 07:48 Sertraline HCl (Zoloft) 75 mg DAILY PO 12/24/20 09:00 12/27/20 17:49 DC 12/27/20 08:46 Quetiapine Fumarate (SEROquel) 12.5 mg 0900,1700 PO 12/25/20 09:00 UNV Sertraline HCl (Zoloft) 100 mg DAILY PO 12/28/20 09:00 12/27/20 17:49 DC Fluvoxamine Maleate (Luvox) 25 mg DAILY PO 12/28/20 09:00 12/30/20 12:00 12/29/20 07:48 Fluvoxamine Maleate (Luvox) 50 mg DAILY PO 12/31/20 09:00 Current Medications Medications (Trade) Dose Ordered Sig/Cedrick Route PRN Reason Start Time Stop Time Status Last Admin Dose Admin Fluvoxamine Maleate (Luvox) 25 mg DAILY PO 12/28/20 09:00 12/30/20 12:00 12/29/20 07:48 I have reviewed the current psychotropics carefully including drug interactions. Risk benefit ratio favors no change other than as noted in my dictated progress note. Diagnosis: Problems: (1) Impulse control disorder, unspecified (2) Anxiety disorder, unspecified (3) Dementia, vascular, with depression (4) Dementia, vascular, with delusions (5) Dementia in Alzheimer's disease with depression (6) Dementia in Alzheimer's disease with delusions (7) Major neurocognitive disorder (8) Dementia associated with alcoholism with behavioral disturbance ASHELY GRIFFITH MD Dec 29, 2020 08:14
[2020-12-29 21:00] VITALS: BP 132/69
--- NOTE | 2020-12-29 22:50 | PDOC ---
Exam Note: Jaxon Note: Please also refer to the separate dictated note~for this date of service dictated separately.~Patient seen individually. Discussed the patient with Nursing staff reviewed the chart.~Reviewed interim history and current functioning. Reviewed vital signs,~Labs/ Radiology~and current medications noted below. Continue current treatment with the changes noted in the dictated addendum note Assessment: Vital Signs/I&O: Vital Signs Date Time Temp Pulse Resp B/P (MAP) Pulse Ox O2 Delivery O2 Flow Rate FiO2 12/29/20 21:00 98.8 79 18 132/69 (90) 94 Room Air I & O 12/28/20 12/28/20 12/29/20 15:00 23:00 07:00 Intake Total 840 ml 480 ml Balance 840 ml 480 ml Current Medications: Meds: Current Medications Medications (Trade) Dose Ordered Sig/Cedrick Route PRN Reason Start Time Stop Time Status Last Admin Dose Admin Acetaminophen (Tylenol) 650 mg PRN Q6HRS PRN PO MILD PAIN / TEMP > 100.3'F 12/16/20 12:45 UNV Multi-Ingredient Ointment (Analgesic [place]) 1 judy PRN QID PRN TP MUSCLE PAIN 12/16/20 12:45 Al Hydroxide/Mg Hydroxide (Mylanta Plus Xs) 15 ml PRN AFTMEALHC PRN PO DYSPEPSIA 12/16/20 12:45 Magnesium Hydroxide (Milk Of Magnesia) 2,400 mg PRN QHS PRN PO CONSTIPATION 12/16/20 12:45 Acetaminophen (Tylenol) 650 mg PRN Q4HRS PRN PO mild PAIN 12/16/20 12:45 12/21/20 15:02 Lorazepam (Ativan) 0.5 mg PRN Q1HR PRN PO ANXIETY 12/16/20 13:00 12/27/20 19:19 Olanzapine (ZyPREXA) 5 mg 1X PRN PRN PO ANXIETY / AGITATION 12/16/20 12:45 12/21/20 07:52 DC 12/16/20 21:55 Pantoprazole Sodium (Protonix) 40 mg DAILYAC PO 12/17/20 07:30 12/29/20 07:48 Thiamine HCl (Vitamin B-1) 100 mg DAILY PO 12/17/20 09:00 12/29/20 07:45 Folic Acid (Folic Acid) 1 mg DAILY PO 12/17/20 09:00 12/29/20 07:48 Influenza Virus Vaccine Quadrival (Fluzone Quad Syringe) 0.5 ml ONCE ONCE VAX IM 12/17/20 09:00 12/17/20 09:01 DC 12/17/20 08:52 Olanzapine (ZyPREXA ZYDIS) 2.5 mg PRN Q2HR PRN PO PSYCHOSIS 12/16/20 18:45 12/28/20 10:29 Sertraline HCl (Zoloft) 50 mg DAILY PO 12/21/20 09:00 12/23/20 10:06 DC 12/23/20 07:18 Sertraline HCl (Zoloft) 25 mg DAILY PO 12/18/20 09:00 12/20/20 09:59 DC 12/20/20 07:39 Rivastigmine (Exelon) 4.6 patch DAILY TD 12/18/20 09:00 12/22/20 08:43 DC 12/21/20 08:16 Rivastigmine (Exelon) 1 patch DAILY TD 12/23/20 09:00 12/29/20 07:48 Thiamine HCl (Vitamin B-1) 100 mg DAILY PO 12/18/20 09:00 12/18/20 13:09 DC Quetiapine Fumarate (SEROquel) 25 mg QHS PO 12/18/20 21:00 12/29/20 19:52 Quetiapine Fumarate (SEROquel) 12.5 mg DAILY PO 12/20/20 09:00 12/23/20 10:06 DC 12/23/20 07:17 Rivastigmine (Exelon) 1 patch DAILY TD 12/22/20 09:00 12/22/20 09:01 DC Quetiapine Fumarate (SEROquel) 12.5 mg 0900,1700 PO 12/23/20 17:00 12/29/20 17:45 Sertraline HCl (Zoloft) 75 mg DAILY PO 12/24/20 09:00 12/27/20 17:49 DC 12/27/20 08:46 Quetiapine Fumarate (SEROquel) 12.5 mg 0900,1700 PO 12/25/20 09:00 UNV Sertraline HCl (Zoloft) 100 mg DAILY PO 12/28/20 09:00 12/27/20 17:49 DC Fluvoxamine Maleate (Luvox) 25 mg DAILY PO 12/28/20 09:00 12/30/20 12:00 12/29/20 07:48 Fluvoxamine Maleate (Luvox) 50 mg DAILY PO 12/31/20 09:00 I have reviewed the current psychotropics carefully including drug interactions. Risk benefit ratio favors no change other than as noted in my dictated progress note. Diagnosis: Problems: (1) Impulse control disorder, unspecified (2) Anxiety disorder, unspecified (3) Dementia, vascular, with depression (4) Dementia, vascular, with delusions (5) Dementia in Alzheimer's disease with depression (6) Dementia in Alzheimer's disease with delusions (7) Major neurocognitive disorder (8) Dementia associated with alcoholism with behavioral disturbance ASHELY GRIFFITH MD Dec 29, 2020 22:50
[2020-12-30 05:43] VITALS: BP 158/70
--- NOTE | 2020-12-30 08:08 | PDOC ---
Exam Note: Jaxon Note: This note is a late entry for 12/29/2020 covers elements not covered in my initial note. Subjective: The patient was seen individually in the evening of 12/29/2020 with Linda CRUZ, discussed and reviewed the chart. The patient slept 7 hours previous night. She has been pleasant, obsessed about wanting to go home, addressing this with social service staff. Review of Systems: No CV, , pulmonary, eye, ENT system symptoms on review. Mental Status Exam: The patient is oriented to herself and situation. Speech coherent, rapid at times. Abstraction fair. Computation impaired. Language function intact. Attention span is short. Mood and affect somewhat anxious, labile. Laboratory Data: Reviewed. Impression: Major neurocognitive disorder Alzheimer vascular with delusion, depression, behavioral disturbance. Anxiety disorder unspecified. Impulse control disorder unspecified. Plan: No change from initial note. Assessment: Vital Signs/I&O: Vital Signs Date Time Temp Pulse Resp B/P (MAP) Pulse Ox O2 Delivery O2 Flow Rate FiO2 12/30/20 05:43 97.7 70 18 158/70 (99) 97 Room Air I & O 12/29/20 12/29/20 12/30/20 15:00 23:00 07:00 Intake Total 600 ml 600 ml Balance 600 ml 600 ml Current Medications: Meds: Current Medications Medications (Trade) Dose Ordered Sig/Cedrick Route PRN Reason Start Time Stop Time Status Last Admin Dose Admin Acetaminophen (Tylenol) 650 mg PRN Q6HRS PRN PO MILD PAIN / TEMP > 100.3'F 12/16/20 12:45 UNV Multi-Ingredient Ointment (Analgesic [place]) 1 judy PRN QID PRN TP MUSCLE PAIN 12/16/20 12:45 Al Hydroxide/Mg Hydroxide (Mylanta Plus Xs) 15 ml PRN AFTMEALHC PRN PO DYSPEPSIA 12/16/20 12:45 Magnesium Hydroxide (Milk Of Magnesia) 2,400 mg PRN QHS PRN PO CONSTIPATION 12/16/20 12:45 Acetaminophen (Tylenol) 650 mg PRN Q4HRS PRN PO mild PAIN 12/16/20 12:45 12/21/20 15:02 Lorazepam (Ativan) 0.5 mg PRN Q1HR PRN PO ANXIETY 12/16/20 13:00 12/27/20 19:19 Olanzapine (ZyPREXA) 5 mg 1X PRN PRN PO ANXIETY / AGITATION 12/16/20 12:45 12/21/20 07:52 DC 12/16/20 21:55 Pantoprazole Sodium (Protonix) 40 mg DAILYAC PO 12/17/20 07:30 12/29/20 07:48 Thiamine HCl (Vitamin B-1) 100 mg DAILY PO 12/17/20 09:00 12/29/20 07:45 Folic Acid (Folic Acid) 1 mg DAILY PO 12/17/20 09:00 12/29/20 07:48 Influenza Virus Vaccine Quadrival (Fluzone Quad [id number] Syringe) 0.5 ml ONCE ONCE VAX IM 12/17/20 09:00 12/17/20 09:01 DC 12/17/20 08:52 Olanzapine (ZyPREXA ZYDIS) 2.5 mg PRN Q2HR PRN PO PSYCHOSIS 12/16/20 18:45 12/28/20 10:29 Sertraline HCl (Zoloft) 50 mg DAILY PO 12/21/20 09:00 12/23/20 10:06 DC 12/23/20 07:18 Sertraline HCl (Zoloft) 25 mg DAILY PO 12/18/20 09:00 12/20/20 09:59 DC 12/20/20 07:39 Rivastigmine (Exelon) 4.6 patch DAILY TD 12/18/20 09:00 12/22/20 08:43 DC 12/21/20 08:16 Rivastigmine (Exelon) 1 patch DAILY TD 12/23/20 09:00 12/29/20 07:48 Thiamine HCl (Vitamin B-1) 100 mg DAILY PO 12/18/20 09:00 12/18/20 13:09 DC Quetiapine Fumarate (SEROquel) 25 mg QHS PO 12/18/20 21:00 12/29/20 19:52 Quetiapine Fumarate (SEROquel) 12.5 mg DAILY PO 12/20/20 09:00 12/23/20 10:06 DC 12/23/20 07:17 Rivastigmine (Exelon) 1 patch DAILY TD 12/22/20 09:00 12/22/20 09:01 DC Quetiapine Fumarate (SEROquel) 12.5 mg 0900,1700 PO 12/23/20 17:00 12/29/20 17:45 Sertraline HCl (Zoloft) 75 mg DAILY PO 12/24/20 09:00 12/27/20 17:49 DC 12/27/20 08:46 Quetiapine Fumarate (SEROquel) 12.5 mg 0900,1700 PO 12/25/20 09:00 UNV Sertraline HCl (Zoloft) 100 mg DAILY PO 12/28/20 09:00 12/27/20 17:49 DC Fluvoxamine Maleate (Luvox) 25 mg DAILY PO 12/28/20 09:00 12/30/20 12:00 12/29/20 07:48 Fluvoxamine Maleate (Luvox) 50 mg DAILY PO 12/31/20 09:00 I have reviewed the current psychotropics carefully including drug interactions. Risk benefit ratio favors no change other than as noted in my dictated progress note. Diagnosis: Problems: (1) Impulse control disorder, unspecified (2) Anxiety disorder, unspecified (3) Dementia, vascular, with depression (4) Dementia, vascular, with delusions (5) Dementia in Alzheimer's disease with depression (6) Dementia in Alzheimer's disease with delusions (7) Major neurocognitive disorder (8) Dementia associated with alcoholism with behavioral disturbance ASHELY GRIFFITH MD Dec 30, 2020 08:08
[2020-12-30] MEDS: PANTOPRAZOLE 40 MG TABLET. PO SCH (08:18)
[2020-12-30] MEDS: FOLIC ACID 1 MG TABLET PO SCH (08:18)
[2020-12-30] MEDS: THIAMINE 100 MG TABLET. PO SCH (08:18)
[2020-12-30] MEDS: QUEtiapine 25 MG TABLET. PO SCH ×3 (08:18→19:36)
[2020-12-30] MEDS: RIVASTIGMINE 9.5MG PATCH. TD SCH (08:19)
[2020-12-30 16:30] VITALS: BP 125/87
--- NOTE | 2020-12-30 21:03 | PDOC ---
Exam Note: Jxaon Note: Please also refer to the separate dictated note~for this date of service dictated separately.~Patient seen individually. Discussed the patient with Nursing staff reviewed the chart.~Reviewed interim history and current functioning. Reviewed vital signs,~Labs/ Radiology~and current medications noted below. Continue current treatment with the changes noted in the dictated addendum note Assessment: Vital Signs/I&O: Vital Signs Date Time Temp Pulse Resp B/P (MAP) Pulse Ox O2 Delivery O2 Flow Rate FiO2 12/30/20 16:30 98.6 72 18 125/87 (100) 96 12/30/20 05:43 Room Air I & O 12/29/20 12/29/20 12/30/20 14:59 22:59 06:59 Intake Total 600 ml 600 ml Balance 600 ml 600 ml Current Medications: Meds: Current Medications Medications (Trade) Dose Ordered Sig/Cedrick Route PRN Reason Start Time Stop Time Status Last Admin Dose Admin Acetaminophen (Tylenol) 650 mg PRN Q6HRS PRN PO MILD PAIN / TEMP > 100.3'F 12/16/20 12:45 UNV Multi-Ingredient Ointment (Analgesic [place]) 1 judy PRN QID PRN TP MUSCLE PAIN 12/16/20 12:45 Al Hydroxide/Mg Hydroxide (Mylanta Plus Xs) 15 ml PRN AFTMEALHC PRN PO DYSPEPSIA 12/16/20 12:45 Magnesium Hydroxide (Milk Of Magnesia) 2,400 mg PRN QHS PRN PO CONSTIPATION 12/16/20 12:45 Acetaminophen (Tylenol) 650 mg PRN Q4HRS PRN PO mild PAIN 12/16/20 12:45 12/21/20 15:02 Lorazepam (Ativan) 0.5 mg PRN Q1HR PRN PO ANXIETY 12/16/20 13:00 12/27/20 19:19 Olanzapine (ZyPREXA) 5 mg 1X PRN PRN PO ANXIETY / AGITATION 12/16/20 12:45 12/21/20 07:52 DC 12/16/20 21:55 Pantoprazole Sodium (Protonix) 40 mg DAILYAC PO 12/17/20 07:30 12/30/20 08:18 Thiamine HCl (Vitamin B-1) 100 mg DAILY PO 12/17/20 09:00 12/30/20 08:18 Folic Acid (Folic Acid) 1 mg DAILY PO 12/17/20 09:00 12/30/20 08:18 Influenza Virus Vaccine Quadrival (Fluzone Quad Syringe) 0.5 ml ONCE ONCE VAX IM 12/17/20 09:00 12/17/20 09:01 DC 12/17/20 08:52 Olanzapine (ZyPREXA ZYDIS) 2.5 mg PRN Q2HR PRN PO PSYCHOSIS 12/16/20 18:45 12/28/20 10:29 Sertraline HCl (Zoloft) 50 mg DAILY PO 12/21/20 09:00 12/23/20 10:06 DC 12/23/20 07:18 Sertraline HCl (Zoloft) 25 mg DAILY PO 12/18/20 09:00 12/20/20 09:59 DC 12/20/20 07:39 Rivastigmine (Exelon) 4.6 patch DAILY TD 12/18/20 09:00 12/22/20 08:43 DC 12/21/20 08:16 Rivastigmine (Exelon) 1 patch DAILY TD 12/23/20 09:00 12/30/20 08:19 Thiamine HCl (Vitamin B-1) 100 mg DAILY PO 12/18/20 09:00 12/18/20 13:09 DC Quetiapine Fumarate (SEROquel) 25 mg QHS PO 12/18/20 21:00 12/30/20 19:36 Quetiapine Fumarate (SEROquel) 12.5 mg DAILY PO 12/20/20 09:00 12/23/20 10:06 DC 12/23/20 07:17 Rivastigmine (Exelon) 1 patch DAILY TD 12/22/20 09:00 12/22/20 09:01 DC Quetiapine Fumarate (SEROquel) 12.5 mg 0900,1700 PO 12/23/20 17:00 12/30/20 17:37 Sertraline HCl (Zoloft) 75 mg DAILY PO 12/24/20 09:00 12/27/20 17:49 DC 12/27/20 08:46 Quetiapine Fumarate (SEROquel) 12.5 mg 0900,1700 PO 12/25/20 09:00 UNV Sertraline HCl (Zoloft) 100 mg DAILY PO 12/28/20 09:00 12/27/20 17:49 DC Fluvoxamine Maleate (Luvox) 25 mg DAILY PO 12/28/20 09:00 12/30/20 12:00 DC 12/30/20 08:18 Fluvoxamine Maleate (Luvox) 50 mg DAILY PO 12/31/20 09:00 I have reviewed the current psychotropics carefully including drug interactions. Risk benefit ratio favors no change other than as noted in my dictated progress note. Diagnosis: Problems: (1) Impulse control disorder, unspecified (2) Anxiety disorder, unspecified (3) Dementia, vascular, with depression (4) Dementia, vascular, with delusions (5) Dementia in Alzheimer's disease with depression (6) Dementia in Alzheimer's disease with delusions (7) Major neurocognitive disorder (8) Dementia associated with alcoholism with behavioral disturbance ASHELY GRIFFITH MD Dec 30, 2020 21:03
[2020-12-31 06:11] VITALS: BP 149/84
[2020-12-31 06:32] LABS: BASO # 0.1 x10^3/uL (0.0-0.2); BASO % 1 % (0-3); EOS # 0.3 x10^3/uL (0.0-0.7); EOS % 5 % (0-3); HEMATOCRIT 39.9 % (36.0-47.0); HEMOGLOBIN 13.2 g/dL (12.0-15.5); LYMPH # 1.5 x10^3/uL (1.0-4.8); LYMPH % 27 % (24-48); MEAN CORPUSCULAR HEMOGLOBIN 30 pg (25-35); MEAN CORPUSCULAR HGB CONC 33 g/dL (31-37); MEAN CORPUSCULAR VOLUME 90 fL (79-100); MONO # 0.6 x10^3/uL (0.0-1.1); MONO % 11 % (0-9); NEUT % 56 % (31-73); PLATELET COUNT 296 x10^3/uL (140-400); RED BLOOD COUNT 4.45 x10^6/uL (3.50-5.40); RED CELL DISTRIBUTION WIDTH 13.3 % (11.5-14.5); WHITE BLOOD COUNT 5.3 x10^3/uL (4.0-11.0)
[2020-12-31 06:54] LABS: ALBUMIN 3.2 g/dL (3.4-5.0); ALBUMIN/GLOBULIN RATIO 0.8 (1.0-1.7); CREATININE 0.9 mg/dL (0.6-1.0); GFR 59.4; POTASSIUM 4.4 mmol/L (3.5-5.1); TOTAL BILIRUBIN 0.4 mg/dL (0.2-1.0)
[2020-12-31] MEDS: FOLIC ACID 1 MG TABLET PO SCH (07:51)
[2020-12-31] MEDS: PANTOPRAZOLE 40 MG TABLET. PO SCH (07:51)
[2020-12-31] MEDS: QUEtiapine 25 MG TABLET. PO SCH ×3 (07:51→20:29)
[2020-12-31] MEDS: THIAMINE 100 MG TABLET. PO SCH (07:51)
[2020-12-31] MEDS: RIVASTIGMINE 9.5MG PATCH. TD SCH (07:51)
--- NOTE | 2020-12-31 08:28 | PDOC ---
Exam Note: Jaxon Note: This note is a late entry for 12/30/2020 covers elements not covered in my initial note. Subjective: The patient was reviewed in the morning of 12/30/2020 for a treatment team meeting with Brooklynn Amaral, Lexi Coulter and Sonali (social organization professor), Sabra, activity therapy and Linda CRUZ, discussed and reviewed the chart. The patient slept 6-3/4 hours previous night. She has attended 5 groups this past week, was dancing in the groups on Sunday, irritable in groups yesterday. She may be accepted at [facility] and other facility for next week. We will defer to social service staff to coordinate. She is just not accepting of any of this and insisting she needs to be back home and people are trying to steal from her and she knows the police department. She was verbal and vocal with me at length in the evening. Review of Systems: No CV, , pulmonary, eye, ENT system symptoms on review. Mental Status Exam: The patient is oriented to herself and situation. Speech coherent, rapid at times. Abstraction fair. Computation impaired. Language function intact. Attention span is short. Mood and affect somewhat anxious, labile. Laboratory Data: Reviewed. Impression: Major neurocognitive disorder Alzheimer vascular with delusion, depression, behavioral disturbance. Anxiety disorder unspecified. Impulse control disorder unspecified. Plan: No change from initial note. Assessment: Vital Signs/I&O: Vital Signs Date Time Temp Pulse Resp B/P (MAP) Pulse Ox O2 Delivery O2 Flow Rate FiO2 12/31/20 06:11 98.0 77 18 149/84 (105) 96 Room Air I & O 12/30/20 12/30/20 12/31/20 15:00 23:00 07:00 Intake Total 840 ml 600 ml Balance 840 ml 600 ml Labs: Laboratory Tests Test 12/31/20 06:13 White Blood Count 5.3 x10^3/uL (4.0-11.0) Red Blood Count 4.45 x10^6/uL (3.50-5.40) Hemoglobin 13.2 g/dL (12.0-15.5) Hematocrit 39.9 % (36.0-47.0) Mean Corpuscular Volume 90 fL (79-100) Mean Corpuscular Hemoglobin 30 pg (25-35) Mean Corpuscular Hemoglobin Concent 33 g/dL (31-37) Red Cell Distribution Width 13.3 % (11.5-14.5) Platelet Count 296 x10^3/uL (140-400) Neutrophils (%) (Auto) 56 % (31-73) Lymphocytes (%) (Auto) 27 % (24-48) Monocytes (%) (Auto) 11 % (0-9) H Eosinophils (%) (Auto) 5 % (0-3) H Basophils (%) (Auto) 1 % (0-3) Neutrophils # (Auto) 3.0 x10^3uL (1.8-7.7) Lymphocytes # (Auto) 1.5 x10^3/uL (1.0-4.8) Monocytes # (Auto) 0.6 x10^3/uL (0.0-1.1) Eosinophils # (Auto) 0.3 x10^3/uL (0.0-0.7) Basophils # (Auto) 0.1 x10^3/uL (0.0-0.2) Sodium Level 143 mmol/L (136-145) Potassium Level 4.4 mmol/L (3.5-5.1) Chloride Level 107 mmol/L (98-107) Carbon Dioxide Level 29 mmol/L (21-32) Anion Gap 7 (6-14) Blood Urea Nitrogen 27 mg/dL (7-20) H Creatinine 0.9 mg/dL (0.6-1.0) Estimated GFR (Cockcroft-Gault) 59.4 BUN/Creatinine Ratio 30 (6-20) H Glucose Level 110 mg/dL (70-99) H Calcium Level 9.0 mg/dL (8.5-10.1) Total Bilirubin 0.4 mg/dL (0.2-1.0) Aspartate Amino Transferase (AST) 19 U/L (15-37) Alanine Aminotransferase (ALT) 24 U/L (14-59) Alkaline Phosphatase 93 U/L (46-116) Total Protein 7.0 g/dL (6.4-8.2) Albumin 3.2 g/dL (3.4-5.0) L Albumin/Globulin Ratio 0.8 (1.0-1.7) L Current Medications: Meds: Laboratory Tests Test 12/31/20 06:13 White Blood Count 5.3 x10^3/uL Red Blood Count 4.45 x10^6/uL Hemoglobin 13.2 g/dL Hematocrit 39.9 % Mean Corpuscular Volume 90 fL Mean Corpuscular Hemoglobin 30 pg Mean Corpuscular Hemoglobin Concent 33 g/dL Red Cell Distribution Width 13.3 % Platelet Count 296 x10^3/uL Neutrophils (%) (Auto) 56 % Lymphocytes (%) (Auto) 27 % Monocytes (%) (Auto) 11 % Eosinophils (%) (Auto) 5 % Basophils (%) (Auto) 1 % Neutrophils # (Auto) 3.0 x10^3uL Lymphocytes # (Auto) 1.5 x10^3/uL Monocytes # (Auto) 0.6 x10^3/uL Eosinophils # (Auto) 0.3 x10^3/uL Basophils # (Auto) 0.1 x10^3/uL Sodium Level 143 mmol/L Potassium Level 4.4 mmol/L Chloride Level 107 mmol/L Carbon Dioxide Level 29 mmol/L Anion Gap 7 Blood Urea Nitrogen 27 mg/dL Creatinine 0.9 mg/dL Estimated GFR (Cockcroft-Gault) 59.4 BUN/Creatinine Ratio 30 Glucose Level 110 mg/dL Calcium Level 9.0 mg/dL Total Bilirubin 0.4 mg/dL Aspartate Amino Transf (AST/SGOT) 19 U/L Alanine Aminotransferase (ALT/SGPT) 24 U/L Alkaline Phosphatase 93 U/L Total Protein 7.0 g/dL Albumin 3.2 g/dL Albumin/Globulin Ratio 0.8 Current Medications Medications (Trade) Dose Ordered Sig/Cedrick Route PRN Reason Start Time Stop Time Status Last Admin Dose Admin Acetaminophen (Tylenol) 650 mg PRN Q6HRS PRN PO MILD PAIN / TEMP > 100.3'F 12/16/20 12:45 UNV Multi-Ingredient Ointment (Analgesic [place]) 1 judy PRN QID PRN TP MUSCLE PAIN 12/16/20 12:45 Al Hydroxide/Mg Hydroxide (Mylanta Plus Xs) 15 ml PRN AFTMEALHC PRN PO DYSPEPSIA 12/16/20 12:45 Magnesium Hydroxide (Milk Of Magnesia) 2,400 mg PRN QHS PRN PO CONSTIPATION 12/16/20 12:45 Acetaminophen (Tylenol) 650 mg PRN Q4HRS PRN PO mild PAIN 12/16/20 12:45 12/21/20 15:02 Lorazepam (Ativan) 0.5 mg PRN Q1HR PRN PO ANXIETY 12/16/20 13:00 12/27/20 19:19 Olanzapine (ZyPREXA) 5 mg 1X PRN PRN PO ANXIETY / AGITATION 12/16/20 12:45 12/21/20 07:52 DC 12/16/20 21:55 Pantoprazole Sodium (Protonix) 40 mg DAILYAC PO 12/17/20 07:30 12/31/20 07:51 Thiamine HCl (Vitamin B-1) 100 mg DAILY PO 12/17/20 09:00 12/31/20 07:51 Folic Acid (Folic Acid) 1 mg DAILY PO 12/17/20 09:00 12/31/20 07:51 Influenza Virus Vaccine Quadrival (Fluzone Quad Syringe) 0.5 ml ONCE ONCE VAX IM 12/17/20 09:00 12/17/20 09:01 DC 12/17/20 08:52 Olanzapine (ZyPREXA ZYDIS) 2.5 mg PRN Q2HR PRN PO PSYCHOSIS 12/16/20 18:45 12/31/20 07:53 Sertraline HCl (Zoloft) 50 mg DAILY PO 12/21/20 09:00 12/23/20 10:06 DC 12/23/20 07:18 Sertraline HCl (Zoloft) 25 mg DAILY PO 12/18/20 09:00 12/20/20 09:59 DC 12/20/20 07:39 Rivastigmine (Exelon) 4.6 patch DAILY TD 12/18/20 09:00 12/22/20 08:43 DC 12/21/20 08:16 Rivastigmine (Exelon) 1 patch DAILY TD 12/23/20 09:00 12/31/20 07:51 Thiamine HCl (Vitamin B-1) 100 mg DAILY PO 12/18/20 09:00 12/18/20 13:09 DC Quetiapine Fumarate (SEROquel) 25 mg QHS PO 12/18/20 21:00 12/30/20 19:36 Quetiapine Fumarate (SEROquel) 12.5 mg DAILY PO 12/20/20 09:00 12/23/20 10:06 DC 12/23/20 07:17 Rivastigmine (Exelon) 1 patch DAILY TD 12/22/20 09:00 12/22/20 09:01 DC Quetiapine Fumarate (SEROquel) 12.5 mg 0900,1700 PO 12/23/20 17:00 12/31/20 07:51 Sertraline HCl (Zoloft) 75 mg DAILY PO 12/24/20 09:00 12/27/20 17:49 DC 12/27/20 08:46 Quetiapine Fumarate (SEROquel) 12.5 mg 0900,1700 PO 12/25/20 09:00 UNV Sertraline HCl (Zoloft) 100 mg DAILY PO 12/28/20 09:00 12/27/20 17:49 DC Fluvoxamine Maleate (Luvox) 25 mg DAILY PO 12/28/20 09:00 12/30/20 12:00 DC 12/30/20 08:18 Fluvoxamine Maleate (Luvox) 50 mg DAILY PO 12/31/20 09:00 12/31/20 07:53 Current Medications Medications (Trade) Dose Ordered Sig/Cedrick Route PRN Reason Start Time Stop Time Status Last Admin Dose Admin Fluvoxamine Maleate (Luvox) 50 mg DAILY PO 12/31/20 09:00 12/31/20 07:53 I have reviewed the current psychotropics carefully including drug interactions. Risk benefit ratio favors no change other than as noted in my dictated progress note. Diagnosis: Problems: (1) Impulse control disorder, unspecified (2) Anxiety disorder, unspecified (3) Dementia, vascular, with depression (4) Dementia, vascular, with delusions (5) Dementia in Alzheimer's disease with depression (6) Dementia in Alzheimer's disease with delusions (7) Major neurocognitive disorder (8) Dementia associated with alcoholism with behavioral disturbance ASHELY GRIFFITH MD Dec 31, 2020 08:28
[2020-12-31 15:34] VITALS: BP 130/85
--- NOTE | 2020-12-31 21:07 | PDOC ---
Exam Note: Jaxon Note: Please also refer to the separate dictated note~for this date of service dictated separately.~Patient seen individually. Discussed the patient with Nursing staff reviewed the chart.~Reviewed interim history and current functioning. Reviewed vital signs,~Labs/ Radiology~and current medications noted below. Continue current treatment with the changes noted in the dictated addendum note Assessment: Vital Signs/I&O: Vital Signs Date Time Temp Pulse Resp B/P (MAP) Pulse Ox O2 Delivery O2 Flow Rate FiO2 12/31/20 15:34 97.9 72 18 130/85 (100) 95 Room Air I & O 12/30/20 12/30/20 12/31/20 15:00 23:00 07:00 Intake Total 840 ml 600 ml Balance 840 ml 600 ml Labs: Laboratory Tests Test 12/31/20 06:13 White Blood Count 5.3 x10^3/uL (4.0-11.0) Red Blood Count 4.45 x10^6/uL (3.50-5.40) Hemoglobin 13.2 g/dL (12.0-15.5) Hematocrit 39.9 % (36.0-47.0) Mean Corpuscular Volume 90 fL (79-100) Mean Corpuscular Hemoglobin 30 pg (25-35) Mean Corpuscular Hemoglobin Concent 33 g/dL (31-37) Red Cell Distribution Width 13.3 % (11.5-14.5) Platelet Count 296 x10^3/uL (140-400) Neutrophils (%) (Auto) 56 % (31-73) Lymphocytes (%) (Auto) 27 % (24-48) Monocytes (%) (Auto) 11 % (0-9) H Eosinophils (%) (Auto) 5 % (0-3) H Basophils (%) (Auto) 1 % (0-3) Neutrophils # (Auto) 3.0 x10^3uL (1.8-7.7) Lymphocytes # (Auto) 1.5 x10^3/uL (1.0-4.8) Monocytes # (Auto) 0.6 x10^3/uL (0.0-1.1) Eosinophils # (Auto) 0.3 x10^3/uL (0.0-0.7) Basophils # (Auto) 0.1 x10^3/uL (0.0-0.2) Sodium Level 143 mmol/L (136-145) Potassium Level 4.4 mmol/L (3.5-5.1) Chloride Level 107 mmol/L (98-107) Carbon Dioxide Level 29 mmol/L (21-32) Anion Gap 7 (6-14) Blood Urea Nitrogen 27 mg/dL (7-20) H Creatinine 0.9 mg/dL (0.6-1.0) Estimated GFR (Cockcroft-Gault) 59.4 BUN/Creatinine Ratio 30 (6-20) H Glucose Level 110 mg/dL (70-99) H Calcium Level 9.0 mg/dL (8.5-10.1) Total Bilirubin 0.4 mg/dL (0.2-1.0) Aspartate Amino Transferase (AST) 19 U/L (15-37) Alanine Aminotransferase (ALT) 24 U/L (14-59) Alkaline Phosphatase 93 U/L (46-116) Total Protein 7.0 g/dL (6.4-8.2) Albumin 3.2 g/dL (3.4-5.0) L Albumin/Globulin Ratio 0.8 (1.0-1.7) L Current Medications: Meds: Current Medications Medications (Trade) Dose Ordered Sig/Cedrick Route PRN Reason Start Time Stop Time Status Last Admin Dose Admin Fluvoxamine Maleate (Luvox) 50 mg DAILY PO 12/31/20 09:00 12/31/20 07:53 I have reviewed the current psychotropics carefully including drug interactions. Risk benefit ratio favors no change other than as noted in my dictated progress note. Diagnosis: Problems: (1) Impulse control disorder, unspecified (2) Anxiety disorder, unspecified (3) Dementia, vascular, with depression (4) Dementia, vascular, with delusions (5) Dementia in Alzheimer's disease with depression (6) Dementia in Alzheimer's disease with delusions (7) Major neurocognitive disorder (8) Dementia associated with alcoholism with behavioral disturbance ASHELY GRIFFITH MD Dec 31, 2020 21:07
[2021-01-01 06:20] VITALS: BP 188/92
[2021-01-01] MEDS: PANTOPRAZOLE 40 MG TABLET. PO SCH (08:15)
[2021-01-01] MEDS: RIVASTIGMINE 9.5MG PATCH. TD SCH (08:15)
[2021-01-01] MEDS: THIAMINE 100 MG TABLET. PO SCH (08:15)
[2021-01-01] MEDS: QUEtiapine 25 MG TABLET. PO SCH ×3 (08:15→20:41)
[2021-01-01] MEDS: FOLIC ACID 1 MG TABLET PO SCH (08:16)
[2021-01-01 16:04] VITALS: BP 150/72
[2021-01-01] MEDS: LORazepam 0.5 MG TABLET PO PRN (20:41)
--- NOTE | 2021-01-01 20:55 | PDOC ---
Exam Note: Jaxon Note: Please also refer to the separate dictated note~for this date of service dictated separately.~Patient seen individually. Discussed the patient with Nursing staff reviewed the chart.~Reviewed interim history and current functioning. Reviewed vital signs,~Labs/ Radiology~and current medications noted below. Continue current treatment with the changes noted in the dictated addendum note Assessment: Vital Signs/I&O: Vital Signs Date Time Temp Pulse Resp B/P (MAP) Pulse Ox O2 Delivery O2 Flow Rate FiO2 01/01/21 16:04 98.0 90 20 150/72 (98) 99 Room Air I & O 12/31/20 12/31/20 01/01/21 14:59 22:59 06:59 Intake Total 685 ml 360 ml Balance 685 ml 360 ml Current Medications: Meds: Current Medications Medications (Trade) Dose Ordered Sig/Cedrick Route PRN Reason Start Time Stop Time Status Last Admin Dose Admin Acetaminophen (Tylenol) 650 mg PRN Q6HRS PRN PO MILD PAIN / TEMP > 100.3'F 12/16/20 12:45 UNV Multi-Ingredient Ointment (Analgesic [place]) 1 judy PRN QID PRN TP MUSCLE PAIN 12/16/20 12:45 Al Hydroxide/Mg Hydroxide (Mylanta Plus Xs) 15 ml PRN AFTMEALHC PRN PO DYSPEPSIA 12/16/20 12:45 Magnesium Hydroxide (Milk Of Magnesia) 2,400 mg PRN QHS PRN PO CONSTIPATION 12/16/20 12:45 Acetaminophen (Tylenol) 650 mg PRN Q4HRS PRN PO mild PAIN 12/16/20 12:45 12/21/20 15:02 Lorazepam (Ativan) 0.5 mg PRN Q1HR PRN PO ANXIETY 12/16/20 13:00 01/01/21 20:41 Olanzapine (ZyPREXA) 5 mg 1X PRN PRN PO ANXIETY / AGITATION 12/16/20 12:45 12/21/20 07:52 DC 12/16/20 21:55 Pantoprazole Sodium (Protonix) 40 mg DAILYAC PO 12/17/20 07:30 01/01/21 08:15 Thiamine HCl (Vitamin B-1) 100 mg DAILY PO 12/17/20 09:00 01/01/21 08:15 Folic Acid (Folic Acid) 1 mg DAILY PO 12/17/20 09:00 01/01/21 08:16 Influenza Virus Vaccine Quadrival (Fluzone Quad Syringe) 0.5 ml ONCE ONCE VAX IM 12/17/20 09:00 12/17/20 09:01 DC 12/17/20 08:52 Olanzapine (ZyPREXA ZYDIS) 2.5 mg PRN Q2HR PRN PO PSYCHOSIS 12/16/20 18:45 12/31/20 07:53 Sertraline HCl (Zoloft) 50 mg DAILY PO 12/21/20 09:00 12/23/20 10:06 DC 12/23/20 07:18 Sertraline HCl (Zoloft) 25 mg DAILY PO 12/18/20 09:00 12/20/20 09:59 DC 12/20/20 07:39 Rivastigmine (Exelon) 4.6 patch DAILY TD 12/18/20 09:00 12/22/20 08:43 DC 12/21/20 08:16 Rivastigmine (Exelon) 1 patch DAILY TD 12/23/20 09:00 01/01/21 08:15 Thiamine HCl (Vitamin B-1) 100 mg DAILY PO 12/18/20 09:00 12/18/20 13:09 DC Quetiapine Fumarate (SEROquel) 25 mg QHS PO 12/18/20 21:00 01/01/21 20:41 Quetiapine Fumarate (SEROquel) 12.5 mg DAILY PO 12/20/20 09:00 12/23/20 10:06 DC 12/23/20 07:17 Rivastigmine (Exelon) 1 patch DAILY TD 12/22/20 09:00 12/22/20 09:01 DC Quetiapine Fumarate (SEROquel) 12.5 mg 0900,1700 PO 12/23/20 17:00 01/01/21 17:00 Sertraline HCl (Zoloft) 75 mg DAILY PO 12/24/20 09:00 12/27/20 17:49 DC 12/27/20 08:46 Quetiapine Fumarate (SEROquel) 12.5 mg 0900,1700 PO 12/25/20 09:00 UNV Sertraline HCl (Zoloft) 100 mg DAILY PO 12/28/20 09:00 12/27/20 17:49 DC Fluvoxamine Maleate (Luvox) 25 mg DAILY PO 12/28/20 09:00 12/30/20 12:00 DC 12/30/20 08:18 Fluvoxamine Maleate (Luvox) 50 mg DAILY PO 12/31/20 09:00 01/01/21 08:15 Amlodipine Besylate (Norvasc) 5 mg DAILY PO 01/02/21 09:00 I have reviewed the current psychotropics carefully including drug interactions. Risk benefit ratio favors no change other than as noted in my dictated progress note. Diagnosis: Problems: (1) Impulse control disorder, unspecified (2) Anxiety disorder, unspecified (3) Dementia, vascular, with depression (4) Dementia, vascular, with delusions (5) Dementia in Alzheimer's disease with depression (6) Dementia in Alzheimer's disease with delusions (7) Major neurocognitive disorder (8) Dementia associated with alcoholism with behavioral disturbance ASHELY GRIFFITH MD Jan 01, 2021 20:55
[2021-01-02 06:21] VITALS: BP 114/77
[2021-01-02] MEDS: PANTOPRAZOLE 40 MG TABLET. PO SCH (07:53)
[2021-01-02] MEDS: RIVASTIGMINE 9.5MG PATCH. TD SCH (07:53)
[2021-01-02] MEDS: FOLIC ACID 1 MG TABLET PO SCH (07:53)
[2021-01-02] MEDS: QUEtiapine 25 MG TABLET. PO SCH ×3 (07:54→19:55)
[2021-01-02] MEDS: THIAMINE 100 MG TABLET. PO SCH (07:54)
[2021-01-02] MEDS: amLODIPine BESYLATE 5 MG TABLET PO SCH (07:55)
--- NOTE | 2021-01-02 08:30 | PDOC ---
Exam Note: Jaxon Note: This note is a late entry for 12/31/2020 covers elements not covered in my initial note. Subjective: The patient was seen individually in the evening of 12/31/2020 with Kerline CRUZ, discussed and reviewed the chart. The patient slept 5-1/2 hours previous night. She has been extremely angry, labile regarding placement. She was told about going to an assisted living. She was yelling, screaming for very extended period of time along with being threatening, then she was calmer. Review of Systems: No CV, , pulmonary, eye, ENT system symptoms on review. Mental Status Exam: The patient is oriented to herself and situation. Speech coherent, rapid at times. Abstraction fair. Computation impaired. Language function intact. Attention span is short. Mood and affect somewhat anxious, labile. Laboratory Data: Reviewed. Impression: Major neurocognitive disorder Alzheimer vascular with delusion, depression, behavioral disturbance. Anxiety disorder unspecified. Impulse control disorder unspecified. Plan: No change from initial note. Assessment: Vital Signs/I&O: Vital Signs Date Time Temp Pulse Resp B/P (MAP) Pulse Ox O2 Delivery O2 Flow Rate FiO2 01/02/21 07:55 76 114/77 01/02/21 06:21 97.7 18 95 01/01/21 16:04 Room Air I & O 01/01/21 01/01/21 01/02/21 15:00 23:00 07:00 Intake Total 720 ml 480 ml Balance 720 ml 480 ml Current Medications: Meds: Current Medications Medications (Trade) Dose Ordered Sig/Cedrick Route PRN Reason Start Time Stop Time Status Last Admin Dose Admin Amlodipine Besylate (Norvasc) 5 mg DAILY PO 01/02/21 09:00 01/02/21 07:55 I have reviewed the current psychotropics carefully including drug interactions. Risk benefit ratio favors no change other than as noted in my dictated progress note. Diagnosis: Problems: (1) Impulse control disorder, unspecified (2) Anxiety disorder, unspecified (3) Dementia, vascular, with depression (4) Dementia, vascular, with delusions (5) Dementia in Alzheimer's disease with depression (6) Dementia in Alzheimer's disease with delusions (7) Major neurocognitive disorder (8) Dementia associated with alcoholism with behavioral disturbance ASHELY GRIFFITH MD Jan 02, 2021 08:30
--- NOTE | 2021-01-02 08:44 | PDOC ---
Exam Note: Jaxon Note: This note is a late entry for 01/01/2021 covers elements not covered in my initial note. Subjective: The patient was seen individually in the evening of 01/01/2021 with Kerline CRUZ, discussed and reviewed the chart. The patient slept 6-1/4 hours previous night. She has been somewhat angry, irritable that she is not able to go back to her home. Review of Systems: No CV, , pulmonary, eye, ENT system symptoms on review. She is still obsessed describing in great detail what transpired yesterday and her perception of it. Mental Status Exam: The patient is oriented to herself and situation. Speech coherent, rapid at times. Abstraction fair. Computation impaired. Language function intact. Attention span is short. Mood and affect somewhat anxious, labile. Laboratory Data: Reviewed. Impression: Major neurocognitive disorder Alzheimer vascular with delusion, depression, behavioral disturbance. Anxiety disorder unspecified. Impulse control disorder unspecified. Plan: No change from initial note. Assessment: Vital Signs/I&O: Vital Signs Date Time Temp Pulse Resp B/P (MAP) Pulse Ox O2 Delivery O2 Flow Rate FiO2 01/02/21 07:55 76 114/77 01/02/21 06:21 97.7 18 95 01/01/21 16:04 Room Air I & O 01/01/21 01/01/21 01/02/21 14:59 22:59 06:59 Intake Total 720 ml 480 ml Balance 720 ml 480 ml Current Medications: Meds: Current Medications Medications (Trade) Dose Ordered Sig/Cedrick Route PRN Reason Start Time Stop Time Status Last Admin Dose Admin Acetaminophen (Tylenol) 650 mg PRN Q6HRS PRN PO MILD PAIN / TEMP > 100.3'F 12/16/20 12:45 UNV Multi-Ingredient Ointment (Analgesic [place]) 1 judy PRN QID PRN TP MUSCLE PAIN 12/16/20 12:45 Al Hydroxide/Mg Hydroxide (Mylanta Plus Xs) 15 ml PRN AFTMEALHC PRN PO DYSPEPSIA 12/16/20 12:45 Magnesium Hydroxide (Milk Of Magnesia) 2,400 mg PRN QHS PRN PO CONSTIPATION 12/16/20 12:45 Acetaminophen (Tylenol) 650 mg PRN Q4HRS PRN PO mild PAIN 12/16/20 12:45 12/21/20 15:02 Lorazepam (Ativan) 0.5 mg PRN Q1HR PRN PO ANXIETY 12/16/20 13:00 01/01/21 20:41 Olanzapine (ZyPREXA) 5 mg 1X PRN PRN PO ANXIETY / AGITATION 12/16/20 12:45 12/21/20 07:52 DC 12/16/20 21:55 Pantoprazole Sodium (Protonix) 40 mg DAILYAC PO 12/17/20 07:30 01/02/21 07:53 Thiamine HCl (Vitamin B-1) 100 mg DAILY PO 12/17/20 09:00 01/02/21 07:54 Folic Acid (Folic Acid) 1 mg DAILY PO 12/17/20 09:00 01/02/21 07:53 Influenza Virus Vaccine Quadrival (Fluzone Quad Syringe) 0.5 ml ONCE ONCE VAX IM 12/17/20 09:00 12/17/20 09:01 DC 12/17/20 08:52 Olanzapine (ZyPREXA ZYDIS) 2.5 mg PRN Q2HR PRN PO PSYCHOSIS 12/16/20 18:45 12/31/20 07:53 Sertraline HCl (Zoloft) 50 mg DAILY PO 12/21/20 09:00 12/23/20 10:06 DC 12/23/20 07:18 Sertraline HCl (Zoloft) 25 mg DAILY PO 12/18/20 09:00 12/20/20 09:59 DC 12/20/20 07:39 Rivastigmine (Exelon) 4.6 patch DAILY TD 12/18/20 09:00 12/22/20 08:43 DC 12/21/20 08:16 Rivastigmine (Exelon) 1 patch DAILY TD 12/23/20 09:00 01/02/21 07:53 Thiamine HCl (Vitamin B-1) 100 mg DAILY PO 12/18/20 09:00 12/18/20 13:09 DC Quetiapine Fumarate (SEROquel) 25 mg QHS PO 12/18/20 21:00 01/01/21 20:41 Quetiapine Fumarate (SEROquel) 12.5 mg DAILY PO 12/20/20 09:00 12/23/20 10:06 DC 12/23/20 07:17 Rivastigmine (Exelon) 1 patch DAILY TD 12/22/20 09:00 12/22/20 09:01 DC Quetiapine Fumarate (SEROquel) 12.5 mg 0900,1700 PO 12/23/20 17:00 01/02/21 07:54 Sertraline HCl (Zoloft) 75 mg DAILY PO 12/24/20 09:00 12/27/20 17:49 DC 12/27/20 08:46 Quetiapine Fumarate (SEROquel) 12.5 mg 0900,1700 PO 12/25/20 09:00 UNV Sertraline HCl (Zoloft) 100 mg DAILY PO 12/28/20 09:00 12/27/20 17:49 DC Fluvoxamine Maleate (Luvox) 25 mg DAILY PO 12/28/20 09:00 12/30/20 12:00 DC 12/30/20 08:18 Fluvoxamine Maleate (Luvox) 50 mg DAILY PO 12/31/20 09:00 01/02/21 07:53 Amlodipine Besylate (Norvasc) 5 mg DAILY PO 01/02/21 09:00 01/02/21 07:55 Current Medications Medications (Trade) Dose Ordered Sig/Cedrick Route PRN Reason Start Time Stop Time Status Last Admin Dose Admin Amlodipine Besylate (Norvasc) 5 mg DAILY PO 01/02/21 09:00 01/02/21 07:55 I have reviewed the current psychotropics carefully including drug interactions. Risk benefit ratio favors no change other than as noted in my dictated progress note. Diagnosis: Problems: (1) Impulse control disorder, unspecified (2) Anxiety disorder, unspecified (3) Dementia, vascular, with depression (4) Dementia, vascular, with delusions (5) Dementia in Alzheimer's disease with depression (6) Dementia in Alzheimer's disease with delusions (7) Major neurocognitive disorder (8) Dementia associated with alcoholism with behavioral disturbance ASHELY GRIFFITH MD Jan 02, 2021 08:44
[2021-01-02 15:52] VITALS: BP 128/75
--- NOTE | 2021-01-02 22:00 | PDOC ---
Exam Note: Jaxon Note: Please also refer to the separate dictated note~for this date of service dictated separately.~Patient seen individually. Discussed the patient with Nursing staff reviewed the chart.~Reviewed interim history and current functioning. Reviewed vital signs,~Labs/ Radiology~and current medications noted below. Continue current treatment with the changes noted in the dictated addendum note Assessment: Vital Signs/I&O: Vital Signs Date Time Temp Pulse Resp B/P (MAP) Pulse Ox O2 Delivery O2 Flow Rate FiO2 01/02/21 15:52 98.7 78 16 128/75 (92) 95 01/01/21 16:04 Room Air I & O 01/01/21 01/01/21 01/02/21 15:00 23:00 07:00 Intake Total 720 ml 480 ml Balance 720 ml 480 ml Current Medications: Meds: Current Medications Medications (Trade) Dose Ordered Sig/Cedrick Route PRN Reason Start Time Stop Time Status Last Admin Dose Admin Amlodipine Besylate (Norvasc) 5 mg DAILY PO 01/02/21 09:00 01/02/21 07:55 I have reviewed the current psychotropics carefully including drug interactions. Risk benefit ratio favors no change other than as noted in my dictated progress note. Diagnosis: Problems: (1) Impulse control disorder, unspecified (2) Anxiety disorder, unspecified (3) Dementia, vascular, with depression (4) Dementia, vascular, with delusions (5) Dementia in Alzheimer's disease with depression (6) Dementia in Alzheimer's disease with delusions (7) Major neurocognitive disorder (8) Dementia associated with alcoholism with behavioral disturbance ASHELY GRIFFITH MD Jan 02, 2021 22:00
[2021-01-02] MEDS ORDERED: METH57CR17 TP (22:49)
[2021-01-02] MEDS ORDERED: MAG-115 PO (22:49)
[2021-01-02] MEDS ORDERED: MAGN24003 PO (22:49)
[2021-01-02] MEDS ORDERED: QUET25TA5 PO ×2 (22:50→22:51)
[2021-01-02] MEDS ORDERED: RIVA1PAT23 TD (22:53)
[2021-01-02] MEDS ORDERED: AMLO-186 PO (22:53)
[2021-01-02] MEDS ORDERED: FLUV50TA2 PO (22:54)
[2021-01-03 06:42] VITALS: BP 158/67
[2021-01-03] MEDS: amLODIPine BESYLATE 5 MG TABLET PO SCH (07:59)
[2021-01-03] MEDS: PANTOPRAZOLE 40 MG TABLET. PO SCH (07:59)
[2021-01-03] MEDS: THIAMINE 100 MG TABLET. PO SCH (07:59)
[2021-01-03] MEDS: RIVASTIGMINE 9.5MG PATCH. TD SCH (07:59)
[2021-01-03] MEDS: QUEtiapine 25 MG TABLET. PO SCH ×3 (08:00→20:00)
[2021-01-03] MEDS: FOLIC ACID 1 MG TABLET PO SCH (08:00)
--- NOTE | 2021-01-03 08:51 | PDOC ---
Exam Note: Jaxon Note: This note is a late entry for 01/02/2021 covers elements not covered in my initial note. Subjective: The patient was seen individually in the evening of 01/02/2021 with Kerline CRUZ, discussed and reviewed the chart. The patient slept 5-3/4 hours previous night. She has been anxious, somewhat depressed about her placement but states she is happy to be leaving here on Sunday. She is angry on her DPOA, Grace but was smiling today, less labile in her mood. Review of Systems: No CV, , pulmonary, eye, ENT system symptoms on review. Mental Status Exam: The patient is oriented to herself and situation. Speech has some latency, coherent, rapid at times. Abstraction fair. Computation impaired. Language function intact. Attention span is short. Short-term memory is impaired. No suicidal or homicidal ideation. Laboratory Data: Reviewed. Impression: Major neurocognitive disorder Alzheimer vascular with delusion, depression, behavioral disturbance. Anxiety disorder unspecified. Impulse control disorder unspecified. Plan: No change from initial note. Assessment: Vital Signs/I&O: Vital Signs Date Time Temp Pulse Resp B/P (MAP) Pulse Ox O2 Delivery O2 Flow Rate FiO2 01/03/21 07:59 78 158/67 01/03/21 06:42 97.8 20 95 Room Air I & O 01/02/21 01/02/21 01/03/21 15:00 23:00 07:00 Intake Total 600 ml 445 ml Balance 600 ml 445 ml Current Medications: Meds: Current Medications Medications (Trade) Dose Ordered Sig/Cedrick Route PRN Reason Start Time Stop Time Status Last Admin Dose Admin Amlodipine Besylate (Norvasc) 5 mg DAILY PO 01/02/21 09:00 01/03/21 07:59 I have reviewed the current psychotropics carefully including drug interactions. Risk benefit ratio favors no change other than as noted in my dictated progress note. Diagnosis: Problems: (1) Impulse control disorder, unspecified (2) Anxiety disorder, unspecified (3) Dementia, vascular, with depression (4) Dementia, vascular, with delusions (5) Dementia in Alzheimer's disease with depression (6) Dementia in Alzheimer's disease with delusions (7) Major neurocognitive disorder (8) Dementia associated with alcoholism with behavioral disturbance ASHELY GRIFFITH MD Jan 03, 2021 08:50
[2021-01-03 15:32] VITALS: BP 131/74
[2021-01-03] MEDS: LORazepam 0.5 MG TABLET PO PRN (15:49)
--- NOTE | 2021-01-03 22:07 | PDOC ---
Exam Note: Jaxon Note: Please also refer to the separate dictated note~for this date of service dictated separately.~Patient seen individually. Discussed the patient with Nursing staff reviewed the chart.~Reviewed interim history and current functioning. Reviewed vital signs,~Labs/ Radiology~and current medications noted below. Continue current treatment with the changes noted in the dictated addendum note Assessment: Vital Signs/I&O: Vital Signs Date Time Temp Pulse Resp B/P (MAP) Pulse Ox O2 Delivery O2 Flow Rate FiO2 01/03/21 15:32 98.5 84 17 131/74 (93) 95 01/03/21 06:42 Room Air I & O 01/02/21 01/02/21 01/03/21 15:00 23:00 07:00 Intake Total 600 ml 445 ml Balance 600 ml 445 ml Current Medications: Meds: Current Medications Medications (Trade) Dose Ordered Sig/Cedrick Route PRN Reason Start Time Stop Time Status Last Admin Dose Admin Acetaminophen (Tylenol) 650 mg PRN Q6HRS PRN PO MILD PAIN / TEMP > 100.3'F 12/16/20 12:45 UNV Multi-Ingredient Ointment (Analgesic [place]) 1 judy PRN QID PRN TP MUSCLE PAIN 12/16/20 12:45 Al Hydroxide/Mg Hydroxide (Mylanta Plus Xs) 15 ml PRN AFTMEALHC PRN PO DYSPEPSIA 12/16/20 12:45 Magnesium Hydroxide (Milk Of Magnesia) 2,400 mg PRN QHS PRN PO CONSTIPATION 12/16/20 12:45 Acetaminophen (Tylenol) 650 mg PRN Q4HRS PRN PO mild PAIN 12/16/20 12:45 12/21/20 15:02 Lorazepam (Ativan) 0.5 mg PRN Q1HR PRN PO ANXIETY 12/16/20 13:00 01/03/21 15:49 Olanzapine (ZyPREXA) 5 mg 1X PRN PRN PO ANXIETY / AGITATION 12/16/20 12:45 12/21/20 07:52 DC 12/16/20 21:55 Pantoprazole Sodium (Protonix) 40 mg DAILYAC PO 12/17/20 07:30 01/03/21 07:59 Thiamine HCl (Vitamin B-1) 100 mg DAILY PO 12/17/20 09:00 01/03/21 07:59 Folic Acid (Folic Acid) 1 mg DAILY PO 12/17/20 09:00 01/03/21 08:00 Influenza Virus Vaccine Quadrival (Fluzone Quad Syringe) 0.5 ml ONCE ONCE VAX IM 12/17/20 09:00 12/17/20 09:01 DC 12/17/20 08:52 Olanzapine (ZyPREXA ZYDIS) 2.5 mg PRN Q2HR PRN PO PSYCHOSIS 12/16/20 18:45 12/31/20 07:53 Sertraline HCl (Zoloft) 50 mg DAILY PO 12/21/20 09:00 12/23/20 10:06 DC 12/23/20 07:18 Sertraline HCl (Zoloft) 25 mg DAILY PO 12/18/20 09:00 12/20/20 09:59 DC 12/20/20 07:39 Rivastigmine (Exelon) 4.6 patch DAILY TD 12/18/20 09:00 12/22/20 08:43 DC 12/21/20 08:16 Rivastigmine (Exelon) 1 patch DAILY TD 12/23/20 09:00 01/03/21 07:59 Thiamine HCl (Vitamin B-1) 100 mg DAILY PO 12/18/20 09:00 12/18/20 13:09 DC Quetiapine Fumarate (SEROquel) 25 mg QHS PO 12/18/20 21:00 01/03/21 20:00 Quetiapine Fumarate (SEROquel) 12.5 mg DAILY PO 12/20/20 09:00 12/23/20 10:06 DC 12/23/20 07:17 Rivastigmine (Exelon) 1 patch DAILY TD 12/22/20 09:00 12/22/20 09:01 DC Quetiapine Fumarate (SEROquel) 12.5 mg 0900,1700 PO 12/23/20 17:00 01/03/21 15:49 Sertraline HCl (Zoloft) 75 mg DAILY PO 12/24/20 09:00 12/27/20 17:49 DC 12/27/20 08:46 Quetiapine Fumarate (SEROquel) 12.5 mg 0900,1700 PO 12/25/20 09:00 UNV Sertraline HCl (Zoloft) 100 mg DAILY PO 12/28/20 09:00 12/27/20 17:49 DC Fluvoxamine Maleate (Luvox) 25 mg DAILY PO 12/28/20 09:00 12/30/20 12:00 DC 12/30/20 08:18 Fluvoxamine Maleate (Luvox) 50 mg DAILY PO 12/31/20 09:00 01/03/21 08:00 Amlodipine Besylate (Norvasc) 5 mg DAILY PO 01/02/21 09:00 01/03/21 07:59 I have reviewed the current psychotropics carefully including drug interactions. Risk benefit ratio favors no change other than as noted in my dictated progress note. Diagnosis: Problems: (1) Impulse control disorder, unspecified (2) Anxiety disorder, unspecified (3) Dementia, vascular, with depression (4) Dementia, vascular, with delusions (5) Dementia in Alzheimer's disease with depression (6) Dementia in Alzheimer's disease with delusions (7) Major neurocognitive disorder (8) Dementia associated with alcoholism with behavioral disturbance ASHELY GRIFFITH MD Jan 03, 2021 22:07
[2021-01-04] MEDS: amLODIPine BESYLATE 5 MG TABLET PO SCH (05:10)
[2021-01-04 06:01] VITALS: BP 184/83
[2021-01-04] MEDS: FOLIC ACID 1 MG TABLET PO SCH (07:41)
[2021-01-04] MEDS: PANTOPRAZOLE 40 MG TABLET. PO SCH (07:41)
[2021-01-04] MEDS: QUEtiapine 25 MG TABLET. PO SCH (07:41)
[2021-01-04] MEDS: THIAMINE 100 MG TABLET. PO SCH (07:41)
[2021-01-04] MEDS: RIVASTIGMINE 9.5MG PATCH. TD SCH (07:42)
--- NOTE | 2021-01-04 10:51 | PDOC ---
Exam Note: Jaxon Note: This note is a late entry for 01/03/2021 covers elements not covered in my initial note. Subjective: The patient was seen individually in the evening of 01/03/2021 with Yasmin CRUZ, discussed and reviewed the chart. The patient slept 7-1/4 hours previous night. She has been anxious, restless. Per social service staff, she is extremely agitated about discharge plans, not being returning to her home but rather in an apartment and she was very verbal about this again with me in the evening. Plan is to discharge her on 01/04. She has been overly concerned about other patients arguing with staff. Review of Systems: No CV, , pulmonary, eye, ENT system symptoms on review. Mental Status Exam: The patient is oriented to herself and situation. Speech is coherent. Abstraction fair. Computation impaired. Language function intact. Attention span is short. Mood and affect remains somewhat anxious, less labile. Laboratory Data: Reviewed. Impression: Major neurocognitive disorder Alzheimer vascular with delusion, depression, behavioral disturbance. Anxiety disorder unspecified. Impulse control disorder unspecified. Plan: No change from initial note with discharge plan for 01/04/2021. Assessment: Vital Signs/I&O: Vital Signs Date Time Temp Pulse Resp B/P (MAP) Pulse Ox O2 Delivery O2 Flow Rate FiO2 01/04/21 06:01 98.0 66 20 184/83 (116) 97 Room Air I & O 01/03/21 01/03/21 01/04/21 15:00 23:00 07:00 Intake Total 960 ml 440 ml Balance 960 ml 440 ml Current Medications: Meds: Current Medications Medications (Trade) Dose Ordered Sig/Cedrick Route PRN Reason Start Time Stop Time Status Last Admin Dose Admin Acetaminophen (Tylenol) 650 mg PRN Q6HRS PRN PO MILD PAIN / TEMP > 100.3'F 12/16/20 12:45 UNV Multi-Ingredient Ointment (Analgesic [place]) 1 judy PRN QID PRN TP MUSCLE PAIN 12/16/20 12:45 Al Hydroxide/Mg Hydroxide (Mylanta Plus Xs) 15 ml PRN AFTMEALHC PRN PO DYSPEPSIA 12/16/20 12:45 Magnesium Hydroxide (Milk Of Magnesia) 2,400 mg PRN QHS PRN PO CONSTIPATION 12/16/20 12:45 Acetaminophen (Tylenol) 650 mg PRN Q4HRS PRN PO mild PAIN 12/16/20 12:45 12/21/20 15:02 Lorazepam (Ativan) 0.5 mg PRN Q1HR PRN PO ANXIETY 12/16/20 13:00 01/03/21 15:49 Olanzapine (ZyPREXA) 5 mg 1X PRN PRN PO ANXIETY / AGITATION 12/16/20 12:45 12/21/20 07:52 DC 12/16/20 21:55 Pantoprazole Sodium (Protonix) 40 mg DAILYAC PO 12/17/20 07:30 01/04/21 07:41 Thiamine HCl (Vitamin B-1) 100 mg DAILY PO 12/17/20 09:00 01/04/21 07:41 Folic Acid (Folic Acid) 1 mg DAILY PO 12/17/20 09:00 01/04/21 07:41 Influenza Virus Vaccine Quadrival (Fluzone Quad Syringe) 0.5 ml ONCE ONCE VAX IM 12/17/20 09:00 12/17/20 09:01 DC 12/17/20 08:52 Olanzapine (ZyPREXA ZYDIS) 2.5 mg PRN Q2HR PRN PO PSYCHOSIS 12/16/20 18:45 12/31/20 07:53 Sertraline HCl (Zoloft) 50 mg DAILY PO 12/21/20 09:00 12/23/20 10:06 DC 12/23/20 07:18 Sertraline HCl (Zoloft) 25 mg DAILY PO 12/18/20 09:00 12/20/20 09:59 DC 12/20/20 07:39 Rivastigmine (Exelon) 4.6 patch DAILY TD 12/18/20 09:00 12/22/20 08:43 DC 12/21/20 08:16 Rivastigmine (Exelon) 1 patch DAILY TD 12/23/20 09:00 01/04/21 07:42 Thiamine HCl (Vitamin B-1) 100 mg DAILY PO 12/18/20 09:00 12/18/20 13:09 DC Quetiapine Fumarate (SEROquel) 25 mg QHS PO 12/18/20 21:00 01/03/21 20:00 Quetiapine Fumarate (SEROquel) 12.5 mg DAILY PO 12/20/20 09:00 12/23/20 10:06 DC 12/23/20 07:17 Rivastigmine (Exelon) 1 patch DAILY TD 12/22/20 09:00 12/22/20 09:01 DC Quetiapine Fumarate (SEROquel) 12.5 mg 0900,1700 PO 12/23/20 17:00 01/04/21 07:41 Sertraline HCl (Zoloft) 75 mg DAILY PO 12/24/20 09:00 12/27/20 17:49 DC 12/27/20 08:46 Quetiapine Fumarate (SEROquel) 12.5 mg 0900,1700 PO 12/25/20 09:00 UNV Sertraline HCl (Zoloft) 100 mg DAILY PO 12/28/20 09:00 12/27/20 17:49 DC Fluvoxamine Maleate (Luvox) 25 mg DAILY PO 12/28/20 09:00 12/30/20 12:00 DC 12/30/20 08:18 Fluvoxamine Maleate (Luvox) 50 mg DAILY PO 12/31/20 09:00 01/04/21 07:42 Amlodipine Besylate (Norvasc) 5 mg DAILY PO 01/02/21 09:00 01/04/21 05:10 I have reviewed the current psychotropics carefully including drug interactions. Risk benefit ratio favors no change other than as noted in my dictated progress note. Diagnosis: Problems: (1) Impulse control disorder, unspecified (2) Anxiety disorder, unspecified (3) Dementia, vascular, with depression (4) Dementia, vascular, with delusions (5) Dementia in Alzheimer's disease with depression (6) Dementia in Alzheimer's disease with delusions (7) Major neurocognitive disorder (8) Dementia associated with alcoholism with behavioral disturbance ASHELY GRIFFITH MD Jan 04, 2021 10:51
[2021-01-04 15:00] VITALS: BP 146/79
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
--- NOTE | 2021-01-04 22:04 | PDOC ---
Exam Note: Jaxon Note: Please also refer to the separate dictated note~for this date of service dictated separately.~Patient seen individually. Discussed the patient with Nursing staff reviewed the chart.~Reviewed interim history and current functioning. Reviewed vital signs,~Labs/ Radiology~and current medications noted below. Continue current treatment with the changes noted in the dictated addendum note Assessment: Vital Signs/I&O: Vital Signs Date Time Temp Pulse Resp B/P (MAP) Pulse Ox O2 Delivery O2 Flow Rate FiO2 01/04/21 15:00 98.7 71 18 146/79 (101) 97 01/04/21 06:01 Room Air I & O 01/03/21 01/03/21 01/04/21 15:00 23:00 07:00 Intake Total 960 ml 440 ml Balance 960 ml 440 ml Current Medications: Meds: Current Medications Medications (Trade) Dose Ordered Sig/Cedrick Route PRN Reason Start Time Stop Time Status Last Admin Dose Admin Acetaminophen (Tylenol) 650 mg PRN Q6HRS PRN PO MILD PAIN / TEMP > 100.3'F 12/16/20 12:45 UNV Multi-Ingredient Ointment (Analgesic [place]) 1 judy PRN QID PRN TP MUSCLE PAIN 12/16/20 12:45 01/04/21 16:33 DC Al Hydroxide/Mg Hydroxide (Mylanta Plus Xs) 15 ml PRN AFTMEALHC PRN PO DYSPEPSIA 12/16/20 12:45 01/04/21 16:33 DC Magnesium Hydroxide (Milk Of Magnesia) 2,400 mg PRN QHS PRN PO CONSTIPATION 12/16/20 12:45 01/04/21 16:33 DC Acetaminophen (Tylenol) 650 mg PRN Q4HRS PRN PO mild PAIN 12/16/20 12:45 01/04/21 16:33 DC 12/21/20 15:02 Lorazepam (Ativan) 0.5 mg PRN Q1HR PRN PO ANXIETY 12/16/20 13:00 01/04/21 16:33 DC 01/03/21 15:49 Olanzapine (ZyPREXA) 5 mg 1X PRN PRN PO ANXIETY / AGITATION 12/16/20 12:45 12/21/20 07:52 DC 12/16/20 21:55 Pantoprazole Sodium (Protonix) 40 mg DAILYAC PO 12/17/20 07:30 01/04/21 16:33 DC 01/04/21 07:41 Thiamine HCl (Vitamin B-1) 100 mg DAILY PO 12/17/20 09:00 01/04/21 16:33 DC 01/04/21 07:41 Folic Acid (Folic Acid) 1 mg DAILY PO 12/17/20 09:00 01/04/21 16:33 DC 01/04/21 07:41 Influenza Virus Vaccine Quadrival (Fluzone Quad Syringe) 0.5 ml ONCE ONCE VAX IM 12/17/20 09:00 12/17/20 09:01 DC 12/17/20 08:52 Olanzapine (ZyPREXA ZYDIS) 2.5 mg PRN Q2HR PRN PO PSYCHOSIS 12/16/20 18:45 01/04/21 16:33 DC 12/31/20 07:53 Sertraline HCl (Zoloft) 50 mg DAILY PO 12/21/20 09:00 12/23/20 10:06 DC 12/23/20 07:18 Sertraline HCl (Zoloft) 25 mg DAILY PO 12/18/20 09:00 12/20/20 09:59 DC 12/20/20 07:39 Rivastigmine (Exelon) 4.6 patch DAILY TD 12/18/20 09:00 12/22/20 08:43 DC 12/21/20 08:16 Rivastigmine (Exelon) 1 patch DAILY TD 12/23/20 09:00 01/04/21 16:33 DC 01/04/21 07:42 Thiamine HCl (Vitamin B-1) 100 mg DAILY PO 12/18/20 09:00 12/18/20 13:09 DC Quetiapine Fumarate (SEROquel) 25 mg QHS PO 12/18/20 21:00 01/04/21 16:33 DC 01/03/21 20:00 Quetiapine Fumarate (SEROquel) 12.5 mg DAILY PO 12/20/20 09:00 12/23/20 10:06 DC 12/23/20 07:17 Rivastigmine (Exelon) 1 patch DAILY TD 12/22/20 09:00 12/22/20 09:01 DC Quetiapine Fumarate (SEROquel) 12.5 mg 0900,1700 PO 12/23/20 17:00 01/04/21 16:33 DC 01/04/21 07:41 Sertraline HCl (Zoloft) 75 mg DAILY PO 12/24/20 09:00 12/27/20 17:49 DC 12/27/20 08:46 Quetiapine Fumarate (SEROquel) 12.5 mg 0900,1700 PO 12/25/20 09:00 UNV Sertraline HCl (Zoloft) 100 mg DAILY PO 12/28/20 09:00 12/27/20 17:49 DC Fluvoxamine Maleate (Luvox) 25 mg DAILY PO 12/28/20 09:00 12/30/20 12:00 DC 12/30/20 08:18 Fluvoxamine Maleate (Luvox) 50 mg DAILY PO 12/31/20 09:00 01/04/21 16:33 DC 01/04/21 07:42 Amlodipine Besylate (Norvasc) 5 mg DAILY PO 01/02/21 09:00 01/04/21 16:33 DC 01/04/21 05:10 I have reviewed the current psychotropics carefully including drug interactions. Risk benefit ratio favors no change other than as noted in my dictated progress note. Diagnosis: Problems: (1) Psychotic disorder (2) History of alcohol abuse (3) Impulse control disorder, unspecified (4) Anxiety disorder, unspecified (5) Dementia, vascular, with depression (6) Dementia, vascular, with delusions (7) Dementia in Alzheimer's disease with depression (8) Dementia in Alzheimer's disease with delusions (9) Major neurocognitive disorder (10) Dementia associated with alcoholism with behavioral disturbance ASHELY GRIFFITH MD Jan 04, 2021 22:04
== END 2021-01-04 16:33 | disposition short-term general hospital (02) | DRG 56 ==
LOC: GEROPSY 10:45
PROVIDERS: ADMIT Psychiatry & Neurology Psychiatry; ATTEND Psychiatry & Neurology Psychiatry
DX: G30.9 Alzheimer's disease, unspecified (principal); F01.50 Vascular dementia, unspecified severity, without behavioral disturbance, psychotic disturbance, mood disturbance, and anxiety; E43 Unspecified severe protein-calorie malnutrition; F10.27 Alcohol dependence with alcohol-induced persisting dementia; F02.81 Dementia in other diseases classified elsewhere, unspecified severity, with behavioral disturbance; Z60.2 Problems related to living alone; E78.5 Hyperlipidemia, unspecified; G25.81 Restless legs syndrome; G50.0 Trigeminal neuralgia; I10 Essential (primary) hypertension; K21.9 Gastro-esophageal reflux disease without esophagitis; M19.90 Unspecified osteoarthritis, unspecified site; M48.00 Spinal stenosis, site unspecified; R29.6 Repeated falls; Z20.822 Contact with and (suspected) exposure to COVID-19; F32.9 Major depressive disorder, single episode, unspecified; F41.9 Anxiety disorder, unspecified; F63.9 Impulse disorder, unspecified; W18.30XA Fall on same level, unspecified, initial encounter; R91.1 Solitary pulmonary nodule; I48.91 Unspecified atrial fibrillation; Z85.3 Personal history of malignant neoplasm of breast; Z86.718 Personal history of other venous thrombosis and embolism; Z95.0 Presence of cardiac pacemaker; Z98.42 Cataract extraction status, left eye; Z98.41 Cataract extraction status, right eye; Z90.710 Acquired absence of both cervix and uterus; Z85.828 Personal history of other malignant neoplasm of skin; Z87.891 Personal history of nicotine dependence; Z82.49 Family history of ischemic heart disease and other diseases of the circulatory system; Z80.1 Family history of malignant neoplasm of trachea, bronchus and lung; Z80.41 Family history of malignant neoplasm of ovary; Z83.49 Family history of other endocrine, nutritional and metabolic diseases; Y93.89 Activity, other specified; Z79.899 Other long term (current) drug therapy; Y92.89 Other specified places as the place of occurrence of the external cause; Y99.8 Other external cause status; Z88.8 Allergy status to other drugs, medicaments and biological substances; Z68.26 Body mass index [BMI] 26.0-26.9, adult
CPT/HCPCS: 36415; 80053; 81001; 83540; 83550; 84436; 84480; 85025; 87086; 90471; 90686; U0003; 97116; 97530